=== PATIENT | male | born 1930 | race Caucasian/White ===

== ENCOUNTER 2018-04-02 10:32 | Outpatient (CLI) | payer MEDICARE ==
--- NOTE | 2018-04-02 12:14 | RAD ---
TWO VIEWS LUMBOSACRAL SPINE: History: Low back pain for several weeks. FINDINGS: Two views of the lumbosacral spine shows normal height and alignment of the vertebral bodies without fracture or subluxation. The intervertebral discs are narrowed, particularly at L2-3. Small osteophyt es are seen in the lumbar spine. Vascular calcifications are seen in the aorta. Posterior facet arthrosis is seen in the lower lumbosa cral spine. IMPRESSION: Degenerative changes of the lumbar spine without acute osseous abnormality. POS: [facility]
== END 2018-04-02 10:33 | disposition home or self-care (01) ==
LOC: SCSRAD 10:32
PROVIDERS: ATTEND Family Medicine
DX: M47.26 Other spondylosis with radiculopathy, lumbar region (principal); M89.9 Disorder of bone, unspecified
CPT/HCPCS: 72100

== ENCOUNTER 2018-05-05 13:13 | Outpatient (CLI) | payer MEDICARE ==
--- NOTE | 2018-05-05 15:27 | MRI ---
MRI LUMBAR SPINE NONCONTRAST: History: Fall, low back pain, bilateral radiculopathy. FINDINGS: Conus medullaris is slightly effaced posteriorly by facet hypertrophy at the T11-12 level. A lobulated heterogeneous destructive mass occupying the right and posterior aspect of the L3 vertebr al body measures up to 4.0 cm depth x 3.8 cm width x 3.0 cm length and extends into the right posteri or elements. The mass occupies the right 40% of the central canal at this level, compressing the caud a equina leftward. Edema within the inferior aspect of the l2 vertebral body is favored to be reactiv e rather than an additional mass. T12-L1: Mild osteophytosis. Central canal and neural foramina are patent. L1-2: Disc bulge and degenerative changes result in moderate bilateral foraminal stenoses. L2-3: Degenerative changes with moderate stenosis of the left neural foramen. Marked compression of the thecal sac and cauda equina results from the previously detailed mass. L3-4: Posterior disc bulge and circumferential degenerative changes. Severe stenosis of the central c anal. Moderate right and severe left foraminal stenoses. L4-5: Mild left posterolateral disc protrusion. Degenerative changes with disc bulge. Severe stenosis of the central canal. Moderate right and severe left foraminal stenoses. L5-S1: Thecal sac is patent. Degenerative changes with moderate bilateral foraminal stenoses. IMPRESSION: 1. Large expansile mass of the L3 vertebral body compressing the cauda equina. Likely metastatic dise ase. For the next step, a radionuclide bone scan could be used to evaluate for extent of osseous meta stases. This lesion would be amendable to percutaneous CT guided biopsy if needed. 2. CT of the torso could also be used to evaluate for the neoplasm primary. POS: [facility]
== END 2018-05-05 13:14 | disposition home or self-care (01) ==
LOC: TBSIIMAG 13:13
PROVIDERS: ATTEND Neurological Surgery
DX: M47.16 Other spondylosis with myelopathy, lumbar region (principal)
CPT/HCPCS: 72148

== ENCOUNTER 2018-05-21 09:35 | Outpatient (CLI) | payer MEDICARE ==
[2018-05-21] MEDS ORDERED: Iopamidol 370 76% 100 ML VIAL ONE (10:10)
[2018-05-21] MEDS ORDERED: Iopamidol 370 76% 50 ML VIAL FS ONE (10:10)
--- NOTE | 2018-05-21 10:56 | ULT ---
LIMITED ULTRASOUND OF THE ABDOMINAL AORTA: History: Abdominal aortic aneurysm screening. Technique: Multiplanar grayscale and color doppler images were obtained in a limited ultrasound of th e abdominal aorta. This exam is very limited secondary to patient's large body habitus. FINDINGS: Only limited portions of the aorta were seen. The mid and distal aorta were visualized. It is difficu lt to see the proximal aorta. The aorta measures 1.9 cm in greatest dimension along the midportion. IMPRESSION: No evidence of an abdominal aortic aneurysm on this limited exam. POS: [facility]
--- NOTE | 2018-05-21 14:52 | CT ---
CT OF THE CHEST AND ABDOMEN AND PELVIS WITH IV CONTRAST: Date: 05/21/18 INDICATION: History of metastatic disease with unknown primary. COMPARISON: MRI lumbar spine dated 05/05/[address] of the chest, abdomen, and pelvis dated 02/15/03. FINDINGS: There is scattered emphysema. There are a few areas of reticulonodularity within the anterolateral ri ght lower lobe. There is subsegmental volume loss within the left lung. There is subsegmental volume loss in portions of the right upper lobe. There are calcified granuloma within the right lower lobe. There are calcified lymph nodes within the right hilum. There are vascular calcifications involving t he coronary arteries and thoracic aorta. There is a nonspecific enlarged lymph node seen along the le ft internal mammary chain and anterior pericardial region, the largest measuring 1.6 cm on image 24 o f series 2 within the left internal mammary region. There is a cirrhotic morphology to the liver. There is a large, heterogeneously enhancing, hypodense mass centered within the right hepatic lobe extending into the medial left hepatic lobe measuring 9.8 x 9.5 cm in size, suspicious for hepatic malignancy. There is an enlarged lymph node within the gastrohepatic ligament measuring 4.8 x 3.8 cm. Gallbladder is mildly distended with layered gallstones. Pancreas, adrenal glands, and left kidney appear within normal limits. The spleen is enlarged, measur ing 16.5 cm. There is a 1.6 cm cyst within the superior pole of the right kidney. There are moderate calcifications involving the abdominopelvic vasculature. There are fat-containing periumbilical hernia. Scattered diverticula involving the colon without evidence of active diverticulitis. There is a large, lytic lesion corresponding the MRI abnormality involving the right aspect of the L3 vertebral body extending into the right L3 pedicle. No additional suspicious osteolytic lesion is id entified. There is diffuse osteopenia. There is scattered degenerative and osteoarthritic change. IMPRESSION: 1. Findings of cirrhosis and portal hypertension with an ill-defined heterogeneously enhancing lesio n within the right hepatic lobe extending into the medial left hepatic lobe suspicious for hepatic ma lignancy such as hepatocellular carcinoma. 2. Enlarged lymph node of the gastrohepatic ligament is suspicious for malignant lymphadenopathy. Mi ldly prominent lymph node seen within the anterior pericardial region and along the left internal dori quincy artery chain suspicious for malignant lymph node involvement. 3. Osseous metastatic disease to the right L3 vertebral body. 4. Emphysema. 5. Findings of prior granulomatous disease. 6. Nonspecific reticulonodularity within the right lower lobe can be seen with a bronchiolitis. 7. Colonic diverticulosis. 8. Prominent vascular calcifications. POS: [facility]
== END 2018-05-21 09:36 | disposition home or self-care (01) ==
LOC: BICULT 09:35 → CT 09:36
PROVIDERS: ATTEND Family Medicine
DX: Z00.00 Encounter for general adult medical examination without abnormal findings (principal); Z13.6 Encounter for screening for cardiovascular disorders; M89.9 Disorder of bone, unspecified; C79.51 Secondary malignant neoplasm of bone; J43.9 Emphysema, unspecified; K57.30 Diverticulosis of large intestine without perforation or abscess without bleeding; R59.0 Localized enlarged lymph nodes
CPT/HCPCS: 71260; 74177; 76775; 82565; Q9967

== ENCOUNTER 2018-05-30 20:02 | Emergency (ER) | payer MEDICARE ==
--- NOTE | 2018-05-30 20:41 | RAD ---
RADIOGRAPH RIGHT HIP TWO VIEWS: 05/30/18 HISTORY: 87-year-old male with traumatic right hip pain due to fall. FINDINGS: Body habitus, including abdominal pannus, obscures fine bony detail. No displaced fracture. No disloc ation. IMPRESSION: No fracture identified. POS: [facility]
[2018-05-30 21:03] LABS: Bacteria/HPF 4+ HPF (None Seen); Bilirubin Negative (Negative); Blood, Urine Large (Negative); Clarity TURBID (Clear); Glucose, Urine (Dipstick) Negative (Negative); Leukocyte Large (Negative); Nitrite Negative (Negative); Protein, Urine (Dipstick) 100 mg/dL (Neg-Trace); Specific Gravity, Urine 1.014 (1.002-1.036); Squamous Epithelial 0-3 HPF (0-3)
[2018-05-30 21:04] LABS: Pathc Cast-AUWi Flag 4.71 (0-2.49); Yeast-AUWi Flag 89.4 (0-25.0)
--- NOTE | 2018-05-30 21:07 | CT ---
CT OF THE BRAIN WITHOUT CONTRAST 05/30/18 INDICATION: History of mechanical fall with head pain. COMPARISON: None. FINDINGS: No acute infarct, hemorrhage or hydrocephalus is present. Septum pellucidum and third ventricle are m idline. There is a large parietal scalp laceration near the midline vertex. Skull is intact. There i s no evidence of displaced fracture. Mastoid air cells and paranasal sinuses are clear. IMPRESSION: No acute intracranial abnormality. POS: [facility]
--- NOTE | 2018-05-30 21:09 | CT ---
CT CERVICAL SPINE WITHOUT CONTRAST: 05/30/18 INDICATION: History of fall with neck pain. COMPARISON: None. FINDINGS: No acute fracture or subluxation is evident. There is moderate multilevel cervical spondylosis. Crani ocervical junction appears within normal limits. Prevertebral soft tissues and lung apices are within normal limits. IMPRESSION: No acute fracture or subluxation. POS: [facility]
[2018-05-30 21:11] LABS: RBC/HPF GREATER THAN 50-TNTC HPF (0-3)
[2018-05-30 21:13] LABS: Hyaline Casts/LPF 4-6 HYALINE CAST LPF (0-3 Hyaline)
[2018-05-30] MEDS ORDERED: Cephalexin 250 MG CAP ONE (22:04)
== END 2018-05-30 22:46 | disposition home or self-care (01) ==
LOC: ERS 20:02
DX: S01.01XA Laceration without foreign body of scalp, initial encounter (principal); N39.0 Urinary tract infection, site not specified; E11.9 Type 2 diabetes mellitus without complications; K21.9 Gastro-esophageal reflux disease without esophagitis; I10 Essential (primary) hypertension; Z79.899 Other long term (current) drug therapy; Z79.4 Long term (current) use of insulin; W17.89XA Other fall from one level to another, initial encounter
CPT/HCPCS: 12004; 70450; 72125; 81001

== ENCOUNTER 2018-06-08 09:09 | Day surgery (SDC) | payer MEDICARE ==
[2018-06-08 09:59] LABS: INR-International Normal Ratio 1.3; PTT 35.8 SEC (22.9-36.1); Prothrombin Time 16.1 SEC (12.0-14.7)
[2018-06-08] MEDS ORDERED: Fentanyl 100 MCG/2 ML VIAL ONE (10:35)
[2018-06-08] MEDS ORDERED: Midazolam HCl 2 mg/2 ml Vial ONE (10:35)
[2018-06-08] MEDS ORDERED: Sodium Bicarbonate 2.5 MEQ/5 ML VIAL ONE (10:35)
[2018-06-08 10:46] LABS: #Eosinphils 0.2 thou/uL (0.0-0.7); #Lymphocytes 1.5 thou/uL (1.20-3.40); #Monocytes 0.5 thou/uL (0.11-0.59); #Neutrophils 5.8 thou/uL (1.40-6.50); %Basophils 0.4 % (0.0-1.0); %Eosinophils 2.7 % (0.0-10.0); %Lymphocytes 18.5 % (21.0-51.0); %Monocytes 6.1 % (0.0-10.0); %Neutrophils 72.3 % (42.0-75.0); Hemoglobin 13.2 g/dL (14.0-18.0); MDiff Complete? YES; Macrocytosis SLIGHT = 6-15 cells (100X) (0-5/hpf); Mean Corpuscular HGB CONC 33.7 g/dL (32.0-36.0); Mean Corpuscular Hemoglobin 33.9 pg (27.0-31.0); Mean Platelet Volume 7.4 fL (7.4-10.4); Platelet Count 102 thou/uL (130-400); Platelet Morphology Comment Appears Decreased; RBC Distribution Width 12.1 % (11.5-14.5)
--- NOTE | 2018-06-08 13:46 | CT ---
CT GUIDED LEFT HEPATIC LOBE MASS BIOPSY: TECHNIQUE: Informed consent was obtained from the patient. The left hepatic lobe mass was localized using CT gu idance. The overlying skin was prepped and draped in the usual sterile manner. A 1% Lidocaine solut ion was used to anesthetize the overlying soft tissues. An outer 17 gauge coaxial needle was placed into the left hepatic lobe. A total of four 2.2 cm core biopsies were obtained using an 18 gauge cor e biopsy needle. The specimen was given to pathology. Initial pathologic evaluation by pathology monson ggests the presence of malignant cells. Post biopsy, a Gelfoam pledget was introduced into the biopsy tract. Hemostasis was achieved. No ev idence of post biopsy hematoma was seen. IMPRESSION: Successful CT guided left hepatic mass biopsy. POS: [facility]
[2018-06-08 13:57] VITALS: BP 138/70; TEMP 98.2
== END 2018-06-08 12:30 | disposition home or self-care (01) ==
LOC: CT 09:09
PROVIDERS: ATTEND Internal Medicine Hematology & Oncology
PROC: 0FB23ZX Excision of Left Lobe Liver, Percutaneous Approach, Diagnostic (ICD-10-PCS; principal; 2018-06-08)
DX: C22.9 Malignant neoplasm of liver, not specified as primary or secondary (principal); D49.2 Neoplasm of unspecified behavior of bone, soft tissue, and skin; M19.90 Unspecified osteoarthritis, unspecified site; E78.00 Pure hypercholesterolemia, unspecified; I48.0 Paroxysmal atrial fibrillation; K21.9 Gastro-esophageal reflux disease without esophagitis; E11.9 Type 2 diabetes mellitus without complications; I10 Essential (primary) hypertension; Z87.891 Personal history of nicotine dependence; Z79.84 Long term (current) use of oral hypoglycemic drugs; Z79.4 Long term (current) use of insulin; Z79.82 Long term (current) use of aspirin; Z79.899 Other long term (current) drug therapy
CPT/HCPCS: 36415; 47000; 77012; 85025; 85610; 85730; 88307; 88313; 88333; 88341; 88342; J2250; J3010

== ENCOUNTER 2018-07-05 15:50 | Emergency (ER) | payer MEDICARE ==
[2018-07-05 16:38] LABS: #Eosinphils 0.2 thou/uL (0.0-0.7); #Lymphocytes 1.2 thou/uL (1.20-3.40); #Monocytes 0.5 thou/uL (0.11-0.59); #Neutrophils 3.3 thou/uL (1.40-6.50); %Basophils 0.7 % (0.0-1.0); %Monocytes 9.5 % (0.0-10.0); %Neutrophils 62.8 % (42.0-75.0); Hemoglobin 13.7 g/dL (14.0-18.0); Mean Corpuscular HGB CONC 34.6 g/dL (32.0-36.0); Mean Corpuscular Hemoglobin 34.9 pg (27.0-31.0); Mean Platelet Volume 7.3 fL (7.4-10.4); Platelet Count 95 thou/uL (130-400); RBC Distribution Width 13.1 % (11.5-14.5); Red Blood Cell (RBC) Count 3.93 mill/uL (4.70-6.10); White Blood Cell (WBC) Count 5.2 thou/uL (4.8-10.8)
[2018-07-05 16:56] LABS: Bilirubin Small (Negative); Blood, Urine Large (Negative); Clarity TURBID (Clear); Glucose, Urine (Dipstick) Negative (Negative); Leukocyte Large (Negative); Nitrite Positive (Negative); Protein, Urine (Dipstick) 100 mg/dL (Neg-Trace); pH, Urine 5.5 (5.0-9.0)
[2018-07-05 16:57] LABS: ALT (SGPT) 36 U/L (8-55); AST (SGOT) 36 U/L (5-34); Albumin 3.4 g/dL (3.4-4.8); Alkaline Phosphatase 168 U/L (40-150); Anion Gap 13 mmol/L (10-20); BUN (Urea Nitrogen) 28 mg/dL (8.4-25.7); Bilirubin, Total 1.6 mg/dL (0.2-1.2); Calc. Creatinine Clearance 0 mL/min (70-130); Calcium 9.4 mg/dL (7.8-10.44); Carbon Dioxide 22 mmol/L (23-31); Chloride 103 mmol/L (98-107); Estimated GFR-MDRD 43; Globulin 2.8 g/dL (2.4-3.5); Glucose 254 mg/dL (83-110); Potassium 4.4 mmol/L (3.5-5.1); Protein, Total 6.2 g/dL (5.8-8.1); Sodium 134 mmol/L (136-145)
[2018-07-05 16:58] LABS: Bacteria/HPF 4+ HPF (None Seen); Hyaline Casts/LPF NONE SEEN LPF (0-3 Hyaline); Renal Epithelial 0-3 HPF (0-3); Squamous Epithelial 0-3 HPF (0-3)
[2018-07-05] MEDS ORDERED: cefTRIAXone\\ROCEPHIN 2 GM VIAL ONE (17:32)
[2018-07-05 19:45] LABS: Anion Gap 12 mmol/L (10-20); BUN (Urea Nitrogen) 26 mg/dL (8.4-25.7); Calc. Creatinine Clearance 0 mL/min (70-130); Calcium 8.7 mg/dL (7.8-10.44); Carbon Dioxide 20 mmol/L (23-31); Chloride 107 mmol/L (98-107); Estimated GFR-MDRD 55; Glucose 186 mg/dL (83-110); Potassium 4.3 mmol/L (3.5-5.1); Sodium 135 mmol/L (136-145)
== END 2018-07-05 21:17 ==
LOC: ERS 15:50
DX: N39.0 Urinary tract infection, site not specified (principal); E86.0 Dehydration; E11.9 Type 2 diabetes mellitus without complications; Z79.4 Long term (current) use of insulin; I10 Essential (primary) hypertension; K21.9 Gastro-esophageal reflux disease without esophagitis; Z79.899 Other long term (current) drug therapy
CPT/HCPCS: 36415; 80053; 81003; 81015; 83605; 85025; 87040; 87077; 87086; 87186; 96361; 96365; J0696

== ENCOUNTER 2018-12-09 15:11 | Inpatient (IN) | payer MEDICARE ==
[2018-12-09 16:04] LABS: #Eosinphils 0.2 thou/uL (0.0-0.7); #Lymphocytes 1.2 thou/uL (1.20-3.40); #Monocytes 0.2 thou/uL (0.11-0.59); #Neutrophils 2.9 thou/uL (1.40-6.50); %Basophils 0.5 % (0.0-1.0); %Eosinophils 3.9 % (0.0-10.0); %Lymphocytes 26.9 % (21.0-51.0); %Monocytes 4.4 % (0.0-10.0); %Neutrophils 64.2 % (42.0-75.0); Hemoglobin 11.5 g/dL (14.0-18.0); Mean Corpuscular HGB CONC 33.6 g/dL (32.0-36.0); Mean Corpuscular Hemoglobin 36.3 pg (27.0-31.0); Mean Platelet Volume 9.1 fL (7.4-10.4); Platelet Count 60 thou/uL (130-400); RBC Distribution Width 13.9 % (11.5-14.5); Red Blood Cell (RBC) Count 3.16 mill/uL (4.70-6.10); White Blood Cell (WBC) Count 4.5 thou/uL (4.8-10.8)
[2018-12-09 16:23] LABS: Bacteria/HPF 4+ HPF (None Seen); Bilirubin Negative (Negative); Blood, Urine 2+ (Negative); Clarity Extra Turbid (Clear); Glucose, Urine (Dipstick) Normal (Negative); Leukocyte 500 Leu/uL (Negative); Nitrite 1+ (Negative); Protein, Urine (Dipstick) 100 mg/dL (Neg-Trace); Squamous Epithelial None Seen HPF (0-3); Urobilinogen Normal mg/dL (Less than 2); WBC/HPF Greater than 50 HPF (0-3)
[2018-12-09 16:25] LABS: ALT (SGPT) 39 U/L (8-55); AST (SGOT) 57 U/L (5-34); Albumin 2.7 g/dL (3.4-4.8); Alkaline Phosphatase 149 U/L (40-150); Anion Gap 16 mmol/L (10-20); BUN (Urea Nitrogen) 46 mg/dL (8.4-25.7); Bilirubin, Total 1.6 mg/dL (0.2-1.2); CK (CPK) 52 U/L (30-200); Calc. Creatinine Clearance 0 mL/min (70-130); Calcium 8.7 mg/dL (7.8-10.44); Carbon Dioxide 20 mmol/L (23-31); Chloride 106 mmol/L (98-107); Estimated GFR-MDRD 21; Globulin 3.2 g/dL (2.4-3.5); Glucose 155 mg/dL (83-110); Magnesium 2.2 mg/dL (1.6-2.6); Potassium 4.1 mmol/L (3.5-5.1); Protein, Total 5.9 g/dL (5.8-8.1); Sodium 138 mmol/L (136-145)
--- NOTE | 2018-12-09 16:41 | RAD ---
FRONTAL VIEW CHEST: 12/09/18 COMPARISON: January 18, 2008. FINDINGS: There is abnormal pleural and parenchymal density of the mid inferior left chest. Interstitial promin ence of each lung is present. There is enlargement of the cardiac silhouette and pulmonary vasculatur e. IMPRESSION: 1. Left pleural effusion with adjacent atelectasis and/or pneumonia. 2. CHF. POS: [facility]
[2018-12-09] MEDS ORDERED: cefTRIAXone\\ROCEPHIN 2 GM VIAL ONE ×2 (16:42→16:45)
[2018-12-09 16:49] LABS: Lipase 19 U/L (8-78)
[2018-12-09 16:57] LABS: CKMB 1.3 ng/mL (0-6.6)
[2018-12-09] MEDS ORDERED: Vancomycin HCl 1.5 GM in Sodium Chloride 0.9% 250 ML 300 ML IVPB ONE (17:00)
[2018-12-09 17:04] LABS: INR-International Normal Ratio 1.5; PTT 37.1 SEC (22.9-36.1); Prothrombin Time 17.9 SEC (12.0-14.7)
[2018-12-09 17:58] LABS: Lactic Acid 1.5 mmol/L (0.5-2.2)
--- NOTE | 2018-12-09 17:58 | CT ---
CT Stone Protocol: 12/09/2018 4:58 PM HISTORY: Increasing weakness with acute kidney injury and BPH COMPARISON: 05/21/2018 TECHNIQUE: Multiple contiguous axial images were obtained and a CT of the abdomen and pelvis without IV contrast . Coronal and sagittal reformats were performed. FINDINGS: This examination is limited for the evaluation of solid organs and vascular structures due to the lac k of intravenous contrast. Lower Chest: within normal limits. Abdomen: Liver: Cirrhotic in appearance. . The previously seen abnormality in the left lower liver is not appr eciated without contrast. Bile Ducts: Normal caliber. Gallbladder: Calcified dependent gallstones Pancreas: within normal limits. Spleen: Scattered calcified granulomas. Adrenals: within normal limits. Kidneys: within normal limits. Pelvis: Reproductive Organs: No pelvic masses. Ureters: within normal limits. Bladder: within normal limits. Bowel: Normal caliber. Mesenteric Lymph Nodes: No enlarged mesenteric lymph nodes. Peritoneum: No free air is seen. Moderate ascites is seen. There is a 5.8 cm mass along the root of t he mesentery which has increased in size compared to the prior exam. Vessels: Atherosclerotic calcifications in the aorta Retroperitoneum: within normal limits. Abdominal Wall: within normal limits. Bones: Degenerative changes in the spine and sacroiliac joints. There is a lytic lesion measuring 4.3 cm in size in the L3 vertebral body causing moderate to severe central canal stenosis. There is a destructive lytic lesion involving the left iliac bone near the acetabulum measuring 5.6 cm in size. This has enlarged compared to the prior examination. IMPRESSION: 1. Cirrhosis with portal hypertension/ascites 2. Lytic lesions seen in the L3 vertebral body and left iliac bone. These could represent lytic metas tases or primary osseous lesions. 3. Cholelithiasis 4. Enlarging mesenteric mass
--- NOTE | 2018-12-09 18:01 | ULT ---
EXAM: Bilateral lower extremity venous ultrasound HISTORY: Bilateral lower extremity pain and edema COMPARISON: None TECHNIQUE: Multiplanar grayscale and color Doppler images were obtained in a bilateral lower extremit y venous ultrasound. Spectral analysis of the Doppler waveforms were performed. FINDINGS: The bilateral common femoral vein, profunda femoral veins, and superficial femoral veins a re normal in appearance without visible thrombus. These vessels demonstrate normal compression, flow, and augmentation. The popliteal veins were unable to be visualized secondary to positioning. The bilateral greater saphenous veins are patent without evidence of thrombus. The bilateral posterio r tibial veins could not be visualized. IMPRESSION: No evidence of DVT.
[2018-12-09] MEDS ORDERED: Ondansetron ODT 4 MG TAB SL PRN (18:58)
[2018-12-09] MEDS ORDERED: Ondansetron PF 4 MG/2 ML Vial IVP PRN (18:58)
[2018-12-09] MEDS ORDERED: Sodium Chloride 0.9% 1,000 ML IV SCH (18:58)
[2018-12-09] MEDS ORDERED: Dextrose 50% Abboject 50 ML SYRINGE SLOW IVP PRN (19:43)
[2018-12-09] MEDS ORDERED: Dextrose 5% in Water 1,000 ML IV PRN (19:43)
[2018-12-09] MEDS ORDERED: RENALLY ADJUST ANTIBIOTICS IVPB PRN (19:43)
[2018-12-09] MEDS ORDERED: Calcium Carbonate 500 MG ChewTAB PO PRN (19:49)
[2018-12-09] MEDS ORDERED: Insulin Regular 300 UNITS/3 ML VIAL SC PRN (19:49)
[2018-12-09] MEDS ORDERED: Ondansetron ODT 4 MG TAB PO PRN (19:49)
[2018-12-09 19:58] LABS: Troponin I 0.023 ng/mL (< 0.028)
--- NOTE | 2018-12-09 20:27 | HP ---
PRIMARY CARE PHYSICIAN: Vinnie Edmond DO PRIMARY ONCOLOGIST: Dillon Santos MD CHIEF COMPLAINT: Generalized weakness. HISTORY OF PRESENT ILLNESS: The patient is an 88-year-old male with hepatocellular carcinoma with metastasis, presented to the hospital with generalized weakness. Over the last 6 months, the patient's overall condition has gradually declined. He was recently at [facility] as well as [facility]. Over the last 2 months, he is living at home. He has fallen approximately 10 times recently. The last fall was yesterday without significant injuries. He has also lost his appetite. No fever, dysuria, hematuria, or urgency reported. The patient has been nauseous. The family also noticed worsening lower extremity swelling along with increasing abdominal distention. Last week, he was evaluated by Dr. Edmond and was found to have elevated creatinine of 2.48. He was scheduled to see Nephrology tomorrow. No chest pain reported. He complains of shortness of breath on lying down flat. PAST MEDICAL HISTORY: 1. Diabetes mellitus type 2. 2. Hypertension. 3. Hyperlipidemia. 4. GERD. 5. 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 PAST SURGICAL HISTORY: 1. Left knee surgery. 2. Hernia repair. 3. Liver biopsy. ALLERGIES: NO KNOWN DRUG ALLERGIES. CURRENT HOME MEDICATIONS: Family to bring accurate list of medications. SOCIAL HISTORY: The patient currently lives at home with his . No current use of alcohol, tobacco, or drug use. FAMILY HISTORY: Negative for premature coronary artery disease. REVIEW OF SYSTEMS: Cannot be reliably obtained from the patient due to significant weakness. PHYSICAL EXAMINATION: VITAL SIGNS: Temperature 97.8, respirations 18, pulse 72, and blood pressure of 98/54 with O2 saturation 96% on room air. GENERAL: An 88-year-old male, ill-appearing, in mild respiratory distress. HEENT: Head, atraumatic and normocephalic. Sclerae are anicteric. Dry mucous membranes. No oral lesion. NECK: Supple. No JVD appreciated. No carotid bruit. LUNGS: Showed diminished air entry at bilateral bases with scattered rhonchi. No wheezing. Lungs were symmetrical. HEART: S1 and S2 present. Regular rate and rhythm. No rubs or gallops. ABDOMEN: Soft and distended. There was shifting dullness. No rebound or guarding. No costovertebral angle tenderness. EXTREMITIES: 2 to 3+ edema in bilateral lower extremity, pitting. Mild calf tenderness. SKIN: Warm and dry. LYMPH NODES: No palpable lymph nodes in the neck. PERIPHERAL VASCULAR: Radial pulses palpable bilaterally. MUSCULOSKELETAL: No joint swelling or tenderness. LABORATORY FINDINGS: WBC 4.5 with hemoglobin 11.5, hematocrit 34.1, platelet of 60, and MCV of 108. INR 1.5, PT of 17.9, and PTT 37.1. Chemistry showed sodium 138, potassium 4.1, chloride 106, bicarb 20, BUN 46, and creatinine 2.84. His creatinine in July was 1.09 with a GFR of 64. Total bilirubin 1.6 with AST 57, ALT 39, and alkaline phosphatase 149. Troponin was 0.029 with normal CK-MB. Albumin 2.7. Urinalysis showed greater than 50 wbc's with 4+ bacteria. CT stone protocol showed cirrhosis with portal hypertension and ascites. It also showed lytic lesion 4.3 cm at L3 vertebral body causing ysytqokn-on-jpajug central canal stenosis. He also had a destructive lytic lesion involving the left iliac bone near the acetabulum measuring 5.6 cm in size. There was moderate ascites with enlarging mesenteric mass. There was cholelithiasis as well. Chest x-ray by my review showed left pleural effusion with adjacent atelectasis and/or pneumonia with pulmonary vascular congestion. Bilateral lower extremity Doppler was negative. EKG by my review showed sinus bradycardia with PVCs. IMPRESSION: 1. Generalized weakness, multifactorial. 2. Urinary tract infection. 3. Acute kidney injury on chronic kidney disease stage 2, probably secondary to intravascular volume depletion. 4. Cirrhosis with portal hypertension and moderate amount of ascites. 5. Hepatocellular carcinoma with metastasis. 6. Ukocszvg-wg-xzshkz central canal stenosis in the L3 vertebral body along with lytic lesion in the left iliac bone. 7. Congestive heart failure exacerbation. 8. Metabolic acidosis. 9. Abnormal LFTs. 10. Moderate protein-calorie malnutrition. 11. Macrocytic anemia. 12. Pancytopenia (platelet was 60, WBC was 4.5). 13. Diverticulosis. 14. Hypertension. 15. Diabetes mellitus type 2. 16. Gastroesophageal reflux disease. 17. Hyperlipidemia. PLAN: 1. The patient will be monitored in the telemetry unit. We will consult Oncology, Nephrology, and Gastroenterology. We will also consult palliative care team. Gentle hydration for LUIS A. We will consult Neurosurgery due to lytic lesion along with daetuwqi-ca-jtxjhv central canal stenosis. We will confirm home medications. We will check postvoid residual. Recheck labs in a.m. 2. Consult Physical Therapy, Occupation Therapy once cleared by Neurosurgery. 3. Resume home medications once verified. 4. Plan of care was discussed with the patient and the family in detail, they stated understanding. CODE STATUS: Full code verified with the patient and the family. Surrogate decision maker is the spouse at the bedside. Job ID: [id number]
[2018-12-09] MEDS ORDERED: Piperacillin/Tazobactam 2.25 GM in Sodium Chloride 0.9% 100 ML IVPB SCH (21:00)
[2018-12-09] MEDS: Senokot S 8.6-50 MG TAB PO SCH (21:57)
[2018-12-09 22:22] LABS: Troponin I Less than 0.010 ng/mL (< 0.028)
[2018-12-10] MEDS: Piperacillin/Tazobactam 2.25 GM in Sodium Chloride 0.9% 100 ML IVPB SCH ×2 (04:43→09:57)
[2018-12-10 05:53] LABS: ALT (SGPT) 34 U/L (8-55); AST (SGOT) 42 U/L (5-34); Albumin 2.3 g/dL (3.4-4.8); Alkaline Phosphatase 127 U/L (40-150); Anion Gap 14 mmol/L (10-20); BUN (Urea Nitrogen) 47 mg/dL (8.4-25.7); Bilirubin, Total 1.2 mg/dL (0.2-1.2); Calc. Creatinine Clearance 30 mL/min (70-130); Calcium 8.4 mg/dL (7.8-10.44); Carbon Dioxide 22 mmol/L (23-31); Chloride 107 mmol/L (98-107); Estimated GFR-MDRD 22; Globulin 2.9 g/dL (2.4-3.5); Glucose 126 mg/dL (83-110); Potassium 3.4 mmol/L (3.5-5.1); Protein, Total 5.2 g/dL (5.8-8.1); Sodium 140 mmol/L (136-145)
[2018-12-10 06:17] LABS: Band 5 % (5-11); Eosinophils 6 % (0-10); Hemoglobin 10.8 g/dL (14.0-18.0); Lymphocytes 23 % (21-51); MDiff Complete? YES; Mean Corpuscular HGB CONC 34.2 g/dL (32.0-36.0); Mean Platelet Volume 8.3 fL (7.4-10.4); Monocytes 4 % (0-10); Neutrophil 62 % (42-75); Platelet Count 54 thou/uL (130-400); Platelet Morphology Comment Appears Decreased; RBC Distribution Width 13.8 % (11.5-14.5); Red Blood Cell (RBC) Count 2.92 mill/uL (4.70-6.10)
[2018-12-10 08:03] LABS: Vitamin B12 Greater than 2000 pg/mL (211-911)
[2018-12-10] MEDS ORDERED: Sodium Chloride 0.9% 1,000 ML IV SCH (08:15)
[2018-12-10] MEDS: Saccharomyces boulardii 250 MG CAP PO SCH (09:58)
[2018-12-10] MEDS: Senokot S 8.6-50 MG TAB PO SCH ×2 (09:59→21:19)
--- NOTE | 2018-12-10 12:21 | CON ---
DATE OF CONSULTATION: REASON FOR CONSULT: Carcinoma. HISTORY OF PRESENT ILLNESS: Mr. 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 He underwent LS spine radiotherapy, which was completed in early June. He was to see Dr. Santos to discuss chemotherapy options in mid June, but did not come to that appointment. His states that over the last several months, he has become significantly weaker. He has had a couple of visits in the rehab. Over the last several weeks, he has had an increase in fall, approximately 10 times. He has had poor appetite and increasing abdominal girth. He was seen by his PCP, Dr. Edmond, last week. He had an elevated creatinine of 2.48. He was brought to the emergency room yesterday for weakness and further workup. The patient was seen at bedside with his . He is hard of hearing, but able to answer questions. He denies any pain. The patient had an abdominal and pelvis CT done in the emergency room. His liver was noted to be cirrhotic in appearance. He did have portal hypertension and ascites. The L3 vertebral body had lesions noted. There was also lytic lesion in the left iliac bone. He has a mesenteric mass measuring 5.8 cm. PAST MEDICAL HISTORY: 1. Metastatic, poorly differentiated carcinoma involving the bone and liver, primary unknown. 2. Palliative L-spine radiotherapy. 3. Type 2 diabetes. 4. Hypertension. 5. Paroxysmal atrial fibrillation. 6. Hyperlipidemia. 7. Arthritis. 8. GERD. PAST SURGICAL HISTORY: 1. Hernia repair. 2. Knee replacement. ALLERGIES: NO KNOWN DRUG ALLERGIES. HOME MEDICATIONS: 1. Amlodipine. 2. Valsartan/hydrochlorothiazide. 3. Aspirin. 4. Coreg. 5. Lasix. 6. Cypress. 7. Insulin. 8. Glucophage. 9. Prilosec. 10. Crestor. 11. Spironolactone. FAMILY HISTORY: No known history of cancer. SOCIAL HISTORY: , has five children. Lives with his . No alcohol, tobacco, or illicit drug use. REVIEW OF SYSTEMS: Negative except for noted in HPI. PHYSICAL EXAMINATION: VITAL SIGNS: Temperature 98.1, pulse is 77, respiratory rate 18, BP is 91/52. He is 95% on room air. GENERAL: This is a well-developed, well-nourished male, in no acute distress. He is hard of hearing. HEENT: Normocephalic, atraumatic. Pupils are equal and reactive to light. NECK: Supple. CV: Regular rate and rhythm. LUNGS: Clear anterior. ABDOMEN: Obese, nontender. Bowel sounds are positive. EXTREMITIES: No clubbing or cyanosis. He does have chronic skin changes in his lower extremities with 2+ edema. SKIN: No rash. HEMATOLOGIC: No petechiae or purpura. NEUROLOGIC: Nonfocal. PERTINENT LABS AND X-RAYS: Current WBCs are 4.0, hemoglobin 10.8, hematocrit 31.5, platelet count is 54,000. He has 62% neutrophils, 5% bands, 23% lymphocytes. PT 17.9, INR is 1.5, and PTT is 37.1. Sodium is 140, potassium 3.4, chloride 107, CO2 is 22, BUN is 47, creatinine 2.71, calcium 8.4, bilirubin 1.2, AST is 42, ALT is 34, alkaline phosphatase is 127. Troponin is negative. Serum total protein is 5.2, albumin 2.3, globulin 2.9. B12 is greater than 2,000. TSH is 8.4828. Urine showed 4+ bacteria, positive leukocyte esterase and nitrites. Radiology per HPI. Venogram was negative for DVT. ASSESSMENT: 1. Poorly differentiated metastatic carcinoma. 2. Urinary tract infection. 3. Acute kidney injury. 4. Cirrhosis with portal hypertension and ascites. 5. Moderate to severe central canal stenosis at the L2 vertebral body. 6. Pancytopenia. DISCUSSION: The patient has had untreated carcinoma over the last 6 months. His general decline is most likely due to his cancer. He does not have a cirrhotic appearing liver with ascites. GI has been consulted and we will recheck an AFP as at diagnosis it was 77.3. He is on antibiotics for UTI. Nephrology has seen the patient and is working on his acute kidney injury. I discussed with his that he as of now is a poor candidate for any type of treatment for his cancer and it appears that she is unable to care for him at home. He will likely need to go to a facility. We will have pillowcase cleaner and Palliative Care see the patient. Thank you for the consult. Job ID: [id number] [facility]ALTH[facility]
[2018-12-10] MEDS ORDERED: Vancomycin HCl 1 GM in Premix Bag 1 BAG IVPB SCH (14:30)
[2018-12-10] MEDS: cefTRIAXone\\ROCEPHIN 1 GM in Sodium Chloride 0.9% 100 ML IVPB SCH (15:17)
[2018-12-10] MEDS: Sodium Chloride 0.9% 1,000 ML IV SCH (15:18)
--- NOTE | 2018-12-10 16:21 | PDOC.HOSPP ---
- Subjective Encounter Date: 12/10/18 Encounter Time: 13:30 Subjective: Patient seen and examined for Gen weakness/LUIS A. Feels the same. No CP or SOB. No new complaints. No overnight events - Objective Vital Signs & Weight: Vital Signs (12 hours) Temp Pulse Resp BP Pulse Ox 12/10/18 11:51 98.2 F 74 16 98/54 L 95 12/10/18 08:02 98.1 F 77 18 91/52 L 95 12/10/18 07:01 96 Weight Admit Weight 240 lb 3.2 oz Weight 240 lb 3.2 oz I&O: 12/09/18 12/10/18 12/11/18 06:59 06:59 06:59 Intake Total 595 Balance 595 Result Diagrams: 12/10/18 04:38 12/10/18 04:38 Additional Labs: Accuchecks 12/10/18 12/10/18 12/09/18 10:46 05:38 20:33 POC Glucose 163 H 124 H 169 H Laboratory Tests 12/10/18 12:03 Tumor Marker AFP 420.6 H Radiology Reviewed by me: Yes (Abd CT - reviewed) EKG Reviewed by me: Yes (SR) Hospitalist ROS - Review of Systems Respiratory: denies: cough, dry, shortness of breath, hemoptysis, SOB with excertion, pleuritic pain, sputum, wheezing, other Cardiovascular: denies: chest pain, palpitations, orthopnea, paroxysmal noc. dyspnea, edema, light headedness, other Gastrointestinal: denies: nausea, vomiting, abdominal pain, diarrhea, constipation, melena, hematochezia, other - Medication Medications: Active Medications Generic Name Dose Route Start Last Admin Trade Name Freq PRN Reason Stop Dose Admin Ceftriaxone Sodium 1 gm/ 100 mls @ 200 mls/hr 12/10/18 15:00 12/10/18 15:17 Sodium Chloride IVPB 100 mls Q24HR JOSAFAT Administration Sodium Chloride 1,000 mls @ 30 mls/hr 12/10/18 14:46 12/10/18 15:18 Normal Saline 0.9% IV 1,000 mls .Q24H JOSAFAT Administration Pantoprazole Sodium 40 mg 12/10/18 09:00 12/10/18 09:59 Protonix PO 40 mg DAILY JOSAFAT Administration Saccharomyces Boulardii 250 mg 12/10/18 09:00 09/19/19 09:58 Florastor PO 250 mg DAILY JOSAFAT Administration Senna/Docusate Sodium 2 tab 12/09/18 21:00 12/10/18 09:59 Senokot S PO 2 tab BID JOSAFAT Administration Sodium Chloride 10 ml 12/09/18 21:00 12/10/18 09:59 Flush - Normal Saline IVF 10 ml Q12HR JOSAFAT Administration - Exam General Appearance: NAD Heart: RRR, no rubs Respiratory: CTAB, no ronchi Gastrointestinal: soft, normal bowel sounds Extremities: no edema Psychiatric: A&O x 3 Hosp A/P - Plan IMPRESSION: 1. Generalized weakness, multifactorial. 2. E coli Urinary tract infection. 3. Acute kidney injury on chronic kidney disease stage 2, probably secondary to intravascular volume depletion. 4. Cirrhosis with portal hypertension and moderate amount of ascites. 5. Abnormal LFTs./Hepatocellular carcinoma with metastasis. 6. Wwcyhygk-ad-jeffvt central canal stenosis in the L3 vertebral body along with lytic lesion in the left iliac bone. 7. Congestive heart failure exacerbation. 8. Metabolic acidosis. 9. Staph bacteremia 10. Moderate protein-calorie malnutrition. 11. Macrocytic anemia. 12. Pancytopenia (platelet was 60, WBC was 4.5). 13. Diverticulosis. 14. Hypertension. 15. Diabetes mellitus type 2. 16. Gastroesophageal reflux disease. 17. Hyperlipidemia. PLAN: Echo pending DNR - verified with patient/family Cont IV Ceftriaxone Add IV Vancomycin Monitor Vancomycin level Case d/w Neurosurgery Cont PT/OT Activity as tolerated Rehab Eval Change IVF to KVO
[2018-12-10] MEDS: Folic Acid 1 MG TAB PO SCH (21:19)
[2018-12-10] MEDS ORDERED: Vancomycin HCl 1.5 GM in Sodium Chloride 0.9% 250 ML 300 ML IVPB SCH (22:00)
--- NOTE | 2018-12-11 01:59 | CON ---
DATE OF CONSULTATION: 12/10/2018 REASON FOR CONSULTATION: Ascites, cirrhotic morphology on imaging, liver cancer with metastatic disease. 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 Per chart review and per discussion with the family and patient, the patient was initially diagnosed with a liver mass earlier this year approximately 6 months ago. During that time period, he had a liver biopsy that was performed that showed a poorly differentiated carcinoma with unknown primary. At the time of diagnosis, he did have an evidence of metastatic disease consistent of an L3 spinal lesion in addition to a larger lesion within the mesentery itself. On the imaging, it does not comment on anything within the region of the colon or within the intraluminal colon. With this presence of liver mass, he was supposed to follow with Oncology, but did not do so. Instead over the last 2 months, the patient's functional status has been slowly declining consisting of increased generalized weakness and multiple falls, one of which ending up in a head laceration. He was ultimately transferred to a rehab facility for physical therapy and initially did show some improvement, but after being discharged to home, showed a progressive decline as well. However, over the last 2 weeks, the patient has been having increased weight as well as increased abdominal distention. He also endorses increased lower extremity edema that has been worsening over the last 3 to 4 weeks as well. During this time period, he also endorses increased nausea, nonbloody emesis, increased substernal pyrosis consistent with GERD, and diarrhea with the administration of metformin only. However, he currently denies any fevers, chills, hematemesis, melena, hematochezia, dysphagia, odynophagia, or abdominal pain at the current time. With this worsening functional status, he was evaluated by his PCP, Dr. Edmond and found to have an elevated creatinine with recommendations to proceed to the hospital for further evaluation and treatment. REVIEW OF SYSTEMS: A 10-category review of systems was obtained with all responses negative except for the pertinent positives as listed in the HPI. PAST MEDICAL HISTORY: As per HPI. PAST SURGICAL HISTORY: Left knee surgery, hernia repair, and liver biopsy. FAMILY HISTORY: Denies any family history of GI malignancies. OUTPATIENT MEDICATIONS: Reviewed. ALLERGIES: NO KNOWN DRUG ALLERGIES. SOCIAL HISTORY: Denies any tobacco, alcohol, or illicit drug use. OBJECTIVE: VITAL SIGNS: Temperature 97.3, pulse 67, blood pressure 95/51, respiratory rate 18, and saturating 96% on room air. GENERAL: The patient was lying in bed, in no acute distress. Alert and oriented x3. HEENT: Normocephalic and atraumatic. NECK: Supple. No JVD or scleral icterus noted. CARDIOVASCULAR: Heart sounds were distant and difficult to auscultate, but from what I could hear, they were with a regular rate and rhythm with no discernible murmurs, gallops, or rubs. RESPIRATORY: Clear to auscultation bilaterally with no discernible wheezes or rales. ABDOMEN: Normoactive bowel sounds, soft, but mildly tense. Increased abdominal distention noted with pain in the midepigastric region only upon deep palpation. Positive for shifting dullness. EXTREMITIES: 2+ edema bilaterally up to the knees. LABORATORY DATA: CBC with a white blood cell count of 4.0, hemoglobin 10.8, hematocrit 31.5, and platelets 54. Chemistry with a sodium of 140, potassium 3.4, chloride 107, CO2 22, BUN 47, creatinine 2.71, glucose 126. AST 42, ALT 34, alkaline phosphatase 127, total bilirubin 1.2, albumin 2.3. INR 1.5. CA 19-9 is 655. CEA 2.55. AFP 77. IMAGING DATA: CT of the abdomen and pelvis was obtained on May 21, 2018, which shows cirrhotic morphology in addition to a large enhancing mass within the right lobe of the liver measuring 9.8 x 9.5 cm. There were also enlarged lymph nodes at the gastrohepatic ligament as well as splenomegaly noted at that time. A large cystic lesion was also seen within the L3 and lumbar vertebrae. Liver biopsy was performed on June 08, 2018, with pathology showing a poorly differentiated carcinoma of unknown primary. Repeat CT abdomen and pelvis was obtained on December 09, 2018, without any IV contrast showing no presence of the liver lesion, but did show moderate amount of ascites, enlargement of the mesenteric root mass to 5.8 cm and a lytic lesion at the L3 vertebra measuring now 4.3 cm, which is enlarging in size. Also seen was a destructive lesion within the acetabulum measuring approximately 5.6 cm. 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 Hepatocellular carcinoma: The patient initially presented with increased lower back pain that prompted imaging for further evaluation. On imaging, the patient was noted to have an L3 lytic lesion as well as liver lesion concerning for a malignant process. He ultimately underwent liver biopsy on June 08, 2018, which showed poorly differentiated carcinoma with an unknown primary origin based on special stains performed at that time. The patient has never had a colonoscopy before, but has not noticed any change in bowel habits nor has any imaging been indicative of a larger lesion within the colon, which should be there based on the size of the other metastatic lesions throughout the body. At this point, it seems that he has developed cirrhosis of the liver and subsequent hepatocellular carcinoma as a result and now metastatic to multiple areas within the body. He is currently presenting with new onset of a moderate amount of ascites within the belly as well as shifting dullness to confirm this on physical exam. More than likely, this is related to either onset of cirrhosis with hypoalbuminemia or could be related to the liver cancer itself contributing to further ascites. Given his decreasing functional status, advanced age, and evidence of metastatic disease, his overall prognosis is poor. The likelihood of being evaluated for liver transplant is extremely low again because of the presence of metastatic disease and his advanced age. Recommendations: 1. Would perform paracentesis for both diagnostic and therapeutic purposes for further evaluation of whether this is ascites from malignant process versus cirrhosis with portal hypertension. 2. I would refrain from any diuretics at this time given worsening renal function, which could be potentially indicative of hepatorenal syndrome given his evidence of cirrhosis. 3. Would treat his urinary tract infection, which could be potentially contributing to worsening creatinine as well. 4. Agree with Oncology consultation for further evaluation and treatment options related to metastatic hepatocellular carcinoma. Cirrhosis: The patient is presenting with cirrhotic morphology on imaging in addition to splenomegaly and thrombocytopenia consistent with a diagnosis of cirrhosis. At this point, the etiology of his cirrhosis is unknown with no family history of liver disease and no significant alcohol consumption in the past that might lead itself toward alcoholic cirrhosis. Per discussion with family, he had been overweight for the last 15 to 20 years, making nonalcoholic steatohepatitis and scar deposition related to this condition is a more likely diagnosis. Currently, he is presenting with decompensated disease as evidenced by the presence of a moderate amount of ascites and lower extremity edema. His current MELD score is 21, which carries a 7% to 10% 90-day mortality and would be characterized as a Child-Vidales classification B/C. Further evaluation for underlying liver pathology in light of metastatic hepatocellular carcinoma may be futile and that would not ultimately change the clinical outcome. Recommendations: 1. Would continue to trend his INR and bilirubin for signs of worsening hepatic dysfunction. 2. Given the presence of metastatic liver disease, a screening colonoscopy or screening EGD is not indicated at this time, as again it would not change his clinical outcome. 3. Would refrain from any diuretics as above given his worsening renal function. 4. Would treat his urinary tract infection and give consideration to infusion of IV albumin given the possibility of hepatorenal syndrome. We will continue to follow. Please call with any questions. Job ID: [id number]
[2018-12-11 06:19] LABS: Band 1 % (5-11); Eosinophils 6 % (0-10); Hemoglobin 11.1 g/dL (14.0-18.0); Lymphocytes 24 % (21-51); MDiff Complete? YES; Mean Corpuscular HGB CONC 33.3 g/dL (32.0-36.0); Mean Corpuscular Hemoglobin 36.2 pg (27.0-31.0); Mean Platelet Volume 7.8 fL (7.4-10.4); Metamyelocyte 1 % (0-0); Monocytes 4 % (0-10); Neutrophil 64 % (42-75); Platelet Count 62 thou/uL (130-400); Platelet Morphology Comment Appears Decreased; Red Blood Cell (RBC) Count 3.07 mill/uL (4.70-6.10); White Blood Cell (WBC) Count 5.5 thou/uL (4.8-10.8)
[2018-12-11 06:27] LABS: ALT (SGPT) 32 U/L (8-55); AST (SGOT) 35 U/L (5-34); Albumin 2.2 g/dL (3.4-4.8); Alkaline Phosphatase 125 U/L (40-150); Anion Gap 12 mmol/L (10-20); BUN (Urea Nitrogen) 46 mg/dL (8.4-25.7); Calc. Creatinine Clearance 32 mL/min (70-130); Calcium 8.3 mg/dL (7.8-10.44); Carbon Dioxide 21 mmol/L (23-31); Chloride 108 mmol/L (98-107); Estimated GFR-MDRD 24; Globulin 2.7 g/dL (2.4-3.5); Glucose 135 mg/dL (83-110); Magnesium 2.1 mg/dL (1.6-2.6); Potassium 3.2 mmol/L (3.5-5.1); Protein, Total 4.9 g/dL (5.8-8.1); Sodium 138 mmol/L (136-145)
--- NOTE | 2018-12-11 08:34 | CON ---
DATE OF CONSULTATION: 12/10/2018 REASON FOR CONSULTATION: Chronic kidney disease. REASON FOR ADMISSION: Weakness. HISTORY OF PRESENT ILLNESS: This is an 88-year-old male with history of type 2 diabetes, hypertension, hyperlipidemia, came to the hospital with weakness and is being evaluated, he does follow with Dr. Prather as outpatient and his creatinine was found to be 2.7 form his baseline of 1.09. The patient was also on treatment for hepatocellular carcinoma, but has been on hold for last 6 months because of his rehab needs and weakness. No chest pain or palpitation. The patient has been eating poorly per the family. PAST MEDICAL HISTORY: Positive for type 2 diabetes, hypertension, hyperlipidemia, GERD, hepatocellular carcinoma. PAST SURGICAL HISTORY: Left knee surgery, hernia repair, liver biopsy. HOME MEDICATIONS: 1. Demadex. 2. Sertraline. 3. Zofran. 4. Compazine. 5. Flomax. 6. Glucophage. 7. Exforge. 8. Spironolactone. 9. Crestor. 10. Omeprazole. 11. Coreg. ALLERGIES: NO KNOWN DRUG ALLERGIES. SOCIAL HISTORY: No smoking, alcohol, or illicit drugs. FAMILY HISTORY: No history of kidney disease. REVIEW OF SYSTEMS: CONSTITUTIONAL: Negative for weight loss or gain, ability to conduct usual activities. SKIN: Negative for rash, itching. EYES: Negative for double vision, pain. ENT/MOUTH: Negative for nose bleeding, neck stiffness, pain, tenderness. CARDIOVASCULAR: Negative for palpitations, dyspnea on exertion, orthopnea. RESPIRATORY: Negative for shortness of breath, wheezing, cough, hemoptysis, fever or night sweats. GASTROINTESTINAL: Negative for poor appetite, abdominal pain, heartburn, nausea, vomiting, constipation, or diarrhea. GENITOURINARY: Negative for urgency, frequency, dysuria, nocturia. MUSCULOSKELETAL: Negative for pain, swelling. NEUROLOGIC/PSYCHIATRIC: Negative for anxiety, depression. ALLERGY/IMMUNOLOGIC: Negative for skin rash, bleeding tendency. PHYSICAL EXAMINATION: GENERAL: This is an elderly male, in no apparent distress. VITAL SIGNS: Temperature 98.2, pulse 74, respirations 16, blood pressure 98/54. HEENT: Atraumatic, normocephalic. Oral mucosa moist. NECK: Supple. CV: S1 and S2. Regular rate and rhythm. RESPIRATORY: Clear. GI: Abdomen is soft. MUSCULOSKELETAL: . DERMATOLOGIC: No skin rash. NEUROLOGIC: Alert and awake. PSYCHIATRIC: Mood and affect normal. LABORATORY DATA: Potassium is 3.4, BUN is 47, creatinine is 2.7. ASSESSMENT: 1. Acute kidney injury on chronic kidney disease stage 3, most likely from volume depletion. The patient has been not eating very well. Continue hydration. 2. Anemia of chronic disease. 3. Edema, controlled. 4. Hypertension. 5. Hypokalemia. PLAN: Continue IV fluids. If tolerated, we will close monitor his cardiorespiratory status and continue antibiotics. Follow with Oncology. We will continue to follow. Renally dose all medications. Avoid nephrotoxins. Monitor vancomycin level and dose, avoid levels more than 20. We will follow. Thank you for the consult. Job ID: [id number]
--- NOTE | 2018-12-11 09:52 | PDOC.HOSPP ---
- Subjective Encounter Date: 12/11/18 Encounter Time: 09:00 Subjective: Patient seen and examined for Gen weakness/LUIS A. No new complaints. No overnight events - Objective Vital Signs & Weight: Vital Signs (12 hours) Temp Pulse Resp BP BP Pulse Ox 12/11/18 07:34 97.4 F L 85 18 100/55 L 93 L 12/11/18 04:00 97.4 F L 80 18 104/65 93 L 12/11/18 00:00 97.4 F L 69 18 116/65 93 L Weight Admit Weight 240 lb 3.2 oz Weight 243 lb 6.245 oz I&O: 12/10/18 12/11/18 12/12/18 06:59 06:59 06:59 Intake Total 595 Balance 595 Result Diagrams: 12/11/18 05:51 12/11/18 05:51 Additional Labs: Accuchecks 12/11/18 12/10/18 12/10/18 04:42 20:31 16:41 POC Glucose 118 H 167 H 178 H 12/10/18 10:46 POC Glucose 163 H Hospitalist ROS - Review of Systems Respiratory: denies: cough, dry, shortness of breath, hemoptysis, SOB with excertion, pleuritic pain, sputum, wheezing, other Cardiovascular: denies: chest pain, palpitations, orthopnea, paroxysmal noc. dyspnea, edema, light headedness, other - Medication Medications: Active Medications Generic Name Dose Route Start Last Admin Trade Name Freq PRN Reason Stop Dose Admin Folic Acid 1 mg 12/10/18 21:00 12/10/18 21:19 Folvite PO 1 mg BID JOSAFAT Administration Vancomycin HCl 1.5 gm/ Sodium 300 mls @ 200 mls/hr 12/10/18 22:00 12/10/18 22 :25 Chloride IVPB 300 mls Q24HR JOSAFAT Administration Ceftriaxone Sodium 1 gm/ 100 mls @ 200 mls/hr 12/10/18 15:00 12/10/18 15:17 Sodium Chloride IVPB 100 mls Q24HR JOSAFAT Administration Sodium Chloride 1,000 mls @ 30 mls/hr 12/10/18 14:46 12/10/18 15:18 Normal Saline 0.9% IV 1,000 mls .Q24H JOSAFAT Administration Pantoprazole Sodium 40 mg 12/10/18 09:00 12/10/18 09:59 Protonix PO 40 mg DAILY JOSAFAT Administration Saccharomyces Boulardii 250 mg 12/10/18 09:00 12/10/18 09:58 Florastor PO 250 mg DAILY JOSAFAT Administration Senna/Docusate Sodium 2 tab 12/09/18 21:00 12/10/18 21:19 Senokot S PO 2 tab BID JOSAFAT Administration Sodium Chloride 10 ml 12/09/18 21:00 12/10/18 21:23 Flush - Normal Saline IVF 10 ml Q12HR JOSAFAT Administration - Exam General Appearance: NAD Neck: supple, no JVD Heart: RRR, no rubs Respiratory: rhonchi Respiratory - other findings: dec AE at bases Gastrointestinal: soft, normal bowel sounds Extremities: 1+ LE edema Hosp A/P - Plan IMPRESSION: 1. Generalized weakness, multifactorial. 2. E coli Urinary tract infection. 3. Acute kidney injury on chronic kidney disease stage 2 4. Cirrhosis with portal hypertension and moderate amount of ascites. 5. Abnormal LFTs./Hepatocellular carcinoma with metastasis. 6. 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 7. Acute on chronic diastolic exacerbation. 8. Metabolic acidosis. 9. Staph bacteremia 10. Moderate protein-calorie malnutrition. 11. Macrocytic anemia. 12. Pancytopenia. 13. Diverticulosis. 14. Hypertension. 15. Diabetes mellitus type 2. 16. Gastroesophageal reflux disease. 17. Hyperlipidemia. PLAN: Echo reviewed Cont IV Ceftriaxone/Vancomycin Monitor Vancomycin level Paracentesis today Cont PT/OT Change IVF
--- NOTE | 2018-12-11 11:27 | PRG ---
DATE OF SERVICE: 12/11/2018 SUBJECTIVE: Patient was seen and examined at bedside and overnight events noted. Patient denies any shortness of breath or chest pain or palpitation. No history of nausea or vomiting or diarrhea or fever or chills or cramps. OBJECTIVE: GENERAL: This is an elderly male, in no apparent distress. VITAL SIGNS: Temperature 97.5. Heart rate 85. Respiratory rate 18. Blood pressure 100/55. HEENT: Atraumatic, normocephalic. Oral mucosa is moist NECK: Supple. CARDIOVASCULAR: S1, S2 heard. Rate and rhythm regular. RESPIRATORY: Clear to auscultation. GASTROINTESTINAL: Abdomen is soft. MUSCULOSKELETAL: No tenderness. No edema. DERMATOLOGIC: No skin rash. NEUROLOGIC: Alert and awake and oriented X3. No focal neurologic deficits. Moving all the extremities. PSYCHIATRIC: Mood and affect normal. LABORATORY DATA: Potassium 3.2, BUN is 46, and creatinine is 2.5. ASSESSMENT AND PLAN: 1. Acute kidney injury on chronic kidney disease, stage 3. Renal function slightly better. Creatinine 2.5 from 2.8, not able to have too much fluid. We will gently hydrate as tolerated. 2. Hypokalemia, replace. 3. Metabolic acidosis. 4. Anemia of chronic disease. 5. Hypertension. Plan to continue gentle hydration. Plan to have paracentesis today. We will follow. Job ID: [id number]
--- NOTE | 2018-12-11 11:45 | ULT ---
Ultrasound-guided paracentesis: HISTORY: Symptomatic ascites FINDINGS: Informed consent obtained prior to the procedure. Preprocedural imaging demonstrated signif icant ascites throughout the abdomen and pelvis. Right lower quadrant prepped and draped in normal sterile fashion and anesthetized with 1% buffered l idocaine. With direct sonographic guidance, 5 [place] Yueh catheter is advanced into the ascites and removal of the stylet yielded yellow fluid. 6 L were removed. The patient tolerated the procedure well. No postprocedural complications. IMPRESSION: Successful ultrasound-guided paracentesis yielding 6 L of yellow ascites. As requested, specimen was sent to laboratory for further analysis. Results are pending.
[2018-12-11 12:47] LABS: RBC Count-Automated (BF) 1205 /cumm; WBC/Nucleated-Auto (BF) 85 uL
[2018-12-11 13:45] LABS: BF Color Yellow; Body Fluid Source Ascites Body Fluid; Clarity Hazy (Clear); Tube # EDTA
[2018-12-11 13:52] LABS: BF Segmented Neutrophils 9 %; Cell Count Non Hematic 32 %; Lymphocytes 59 %
[2018-12-11] MEDS: Folic Acid 1 MG TAB PO SCH ×2 (14:08→20:34)
[2018-12-11] MEDS: Saccharomyces boulardii 250 MG CAP PO SCH (14:08)
[2018-12-11] MEDS: cefTRIAXone\\ROCEPHIN 1 GM in Sodium Chloride 0.9% 100 ML IVPB SCH (14:09)
[2018-12-11] MEDS: Senokot S 8.6-50 MG TAB PO SCH ×2 (14:15→19:54)
--- NOTE | 2018-12-11 16:49 | PRG ---
DATE OF SERVICE: 12/11/2018 REASON FOR CONSULTATION: Ascites, cirrhotic morphology on imaging, liver cancer with metastatic disease. SUBJECTIVE: The patient did well overnight with no acute events or problems. He did undergo paracentesis today with approximately 6 L of fluid removed, resulting in significantly less abdominal distention and increased comfort. He currently denies any nausea, vomiting, fevers, chills, abdominal pain, hematemesis, melena, or hematochezia. He had been able to tolerate 1 Nepro shake earlier today, but has thus far not had a significant appetite to continue oral intake. PHYSICAL EXAMINATION: VITAL SIGNS: Temperature 97.4, pulse 85, blood pressure 100/55, respiratory rate 18, and saturating 93% on room air. GENERAL: The patient was lying in bed, in no acute distress. Alert and oriented x4. CARDIOVASCULAR. Heart sounds are difficult to auscultate, but regular rate and rhythm with no discernible murmurs, gallops, or rubs. RESPIRATORY: Clear to auscultation bilaterally. ABDOMEN: Normoactive bowel sounds. Soft. Mild abdominal distention. No tenderness to palpation in any abdominal quadrant. Positive for shifting dullness. EXTREMITIES: 2+ edema bilaterally up to the knees. LABORATORY DATA: CBC with a white blood cell count of 5.5, hemoglobin 11.1, hematocrit 33.3, and platelets 62. Chemistry with a sodium of 138, potassium 3.2, chloride 108, CO2 of 21, BUN 46, creatinine 2.57, glucose 135, AST 35, ALT 32, alkaline phosphatase 125, total bilirubin 1.0, and AST 420. IMAGING DATA: No current GI imaging is available for review. ASSESSMENT AND PLAN: The patient is an 88-year-old male with past medical history of diabetes, hypertension, hyperlipidemia, gastroesophageal reflux disease, and what appears to be cirrhosis (based on cirrhotic morphology and thrombocytopenia), presenting with hepatocellular carcinoma with metastatic disease. 1. Hepatocellular carcinoma: a. The patient initially presented with increased lower back pain that prompted a workup that ultimately discovered a large liver mass in May 2018. Liver biopsy performed, showed poorly-differentiated carcinoma with an AFP of 77 at that time. However, in the interim, the patient has had a significant increase in his AFP to the point where it is now 420 and has had the development/enlargement of metastatic disease in the spine, hip, and mesentery. Paracentesis obtained on December 11, 2018, was consistent with portal hypertension, most likely related to replacement of the liver with liver cancer and/or probable cirrhosis resulting in the hepatocellular carcinoma. Transthoracic echo also mirrors this with fairly benign findings on that particular study. At this time, based on his labs and imaging, it seems he had developed cirrhosis of the liver and subsequently hepatocellular carcinoma with metastatic disease now to multiple areas of the body. This also resulted in increased ascites formation, which could be either due to portal hypertension versus carcinomatosis related to the hepatocellular carcinoma itself. Given his decreasing functional status, advanced age, and evidence of metastatic disease, his overall prognosis is poor. b. Recommendations: I. I would continue to refrain from diuretics at this time given his worsening renal function, which may be indicative of hepatorenal syndrome, but is currently down trending, making this less likely. II. We will consider administration of IV albumin to help with his kidneys. III. Continue to treat his urinary tract infection. IV. We would consider palliative care consultation at this time. 2. Cirrhosis: a. The patient is presenting with cirrhotic morphology on imaging in addition to splenomegaly, thrombocytopenia, consistent with a diagnosis of cirrhosis. At this point in time, the more likely etiology for his cirrhosis would be either nonalcoholic fatty liver disease or nonalcoholic steatohepatitis. However, currently engaging in a full liver workup would be futile at this point and would not change his clinical outcome. Currently, presenting with decompensated disease with a current MELD score of 21 and Child-Vidales classification B/C. b. Recommendations: I. While inpatient, I would continue to trend his INR and bilirubin for signs of worsening hepatic function. II. We would refrain from any diuretics given already worsening renal function and possibility of hepatorenal syndrome, albeit unlikely given his downtrending creatinine at this time. III. We would consider infusion of IV albumin as above, although if pursuing comfort care measures would be irrelevant. At this time, we have nothing additional to offer this particular patient with the palliative care consultation being a reasonable option. We will sign off at this time. Please call with any questions. Job ID: [id number]
[2018-12-11] MEDS ORDERED: Potassium Chloride 20 MEQ TAB PO SCH (17:00)
[2018-12-11] MEDS: Sodium Chloride 0.9% 1,000 ML IV SCH (18:49)
[2018-12-11 21:27] LABS: Vancomycin, Trough 16.4 ug/mL
--- NOTE | 2018-12-12 01:47 | CON ---
DATE OF CONSULTATION: 12/11/2018 REASON FOR CONSULTATION: Bacteremia. 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 He also has type 2 diabetes and atrial fibrillation and he was brought into the hospital, because of worsening ascites and hypotension. The patient has had IV fluids and has had paracentesis with 6 L removed with improvement and a sensation of abdominal distention. Currently, he denies any headaches, no visual symptoms, sore throat, odynophagia, dysphagia. No dyspnea or chest pain. No abdominal pain. He is able to void without any assistance and a diaper. He is unable to ambulate since radiation therapy to his lumbosacral spine area and involvement by tumor. PAST MEDICAL HISTORY: Includes type 2 diabetes, hypertension, atrial fibrillation, hyperlipidemia, degenerative joint disease, metastatic poorly differentiated cancer with bone and liver involvement and mesentry. PAST SURGICAL HISTORY: Hernia repair and knee replacement. ALLERGIES: NONE. FAMILY HISTORY: Noncontributory. SOCIAL HISTORY: lives in the area with , never smoker. CURRENT MEDICATIONS: 1. Ceftriaxone. 2. Folvite. 3. Glucagon. 4. Insulin. 5. Pantoprazole. 6. Vancomycin. PHYSICAL EXAMINATION: VITAL SIGNS: He has been afebrile since admission. His other vital signs are normal. O2 saturation 92-93%. SKIN: Area of bruising and linear distribution in the back area. Gluteal skin area with maceration, erythema and cracking of the skin. No lymphadenopathy. Ocular movements conjugate. Oral cavity is not remarkable. NECK: Supple. LUNGS: Symmetric. Clear breath sounds. HEART: S1-S2 irregular rate. ABDOMEN: Soft, not distended. No evidence of ascites at this time. Liver edge about 3 cm below the costal margin. No splenomegaly, no bladder distention. EXTREMITIES: Left knee replacement site with no inflammatory changes. Pulses are diminished in dorsalis pedis. Cap refill is normal. Plantar responses are indifferent. He is able to wiggle his toes, but he cannot lift the knees from the bed. He is awake, he has quite a bit of hearing impairment. LABORATORY DATA: White cell count 4.5 and 5.5, hemoglobin 11, platelets 60, 64% neutrophils, 24% lymphocytes. Creatinine 2.57, which is above his baseline of 1.09 in July 2018. Urinalysis with greater than 50 WBCs, ascitic fluid with 85 WBCs, 1200 RBCs, 59% lymphocytes. Microbiology with one set of blood cultures with coagulase negative Staphylococcus and there was an E. coli in the urine culture greater than 100,000 CFUs with a broad susceptibility profile. ASSESSMENT: 1. Metastatic undifferentiated carcinoma involving the liver, bone and mesentery, ascites, probably malignant ascites associated with abdominal distention status post therapeutic paracentesis. 2. Hypotension associated with decreased or decreased oral intake, which resolved rapidly after IV fluids. DISCUSSION: 1. Differential diagnosis includes hypovolemia associated with decreased oral intake secondary to cancer related anorexia. 2. The possibility of adrenal gland involvement and Addisonian crisis is considered, but appears to be less likely. 3. Bacteremia. Sepsis has been ruled out. The only thing that showed up in the infectious disease workup was a positive urine culture. I am not clear that this is necessarily related to the patient's presentation, probably not and I would advise discontinuation of antimicrobial therapy after today's dose. The organism in the blood culture is likely to represent a contaminant of the sample and does not require treatment. Job ID: [id number]
[2018-12-12 04:38] LABS: INR-International Normal Ratio 1.5; Prothrombin Time 18.3 SEC (12.0-14.7)
[2018-12-12 04:39] LABS: PTT 39.6 SEC (22.9-36.1)
[2018-12-12 04:44] LABS: Band 2 % (5-11); Hemoglobin 11.9 g/dL (14.0-18.0); Lymphocytes 8 % (21-51); MDiff Complete? YES; Macrocytosis SLIGHT = 6-15 cells (100X) (0-5/hpf); Mean Corpuscular Hemoglobin 37.1 pg (27.0-31.0); Mean Platelet Volume 7.8 fL (7.4-10.4); Monocytes 5 % (0-10); Neutrophil 85 % (42-75); Platelet Count 79 thou/uL (130-400); Platelet Morphology Comment Appears Decreased; RBC Distribution Width 14.2 % (11.5-14.5); White Blood Cell (WBC) Count 7.3 thou/uL (4.8-10.8)
[2018-12-12 04:56] LABS: ALT (SGPT) 29 U/L (8-55); AST (SGOT) 32 U/L (5-34); Alkaline Phosphatase 148 U/L (40-150); Anion Gap 11 mmol/L (10-20); BUN (Urea Nitrogen) 42 mg/dL (8.4-25.7); Calc. Creatinine Clearance 39 mL/min (70-130); Calcium 8.2 mg/dL (7.8-10.44); Carbon Dioxide 23 mmol/L (23-31); Chloride 109 mmol/L (98-107); Estimated GFR-MDRD 29; Globulin 2.8 g/dL (2.4-3.5); Glucose 164 mg/dL (83-110); Potassium 3.5 mmol/L (3.5-5.1); Protein, Total 4.8 g/dL (5.8-8.1); Sodium 139 mmol/L (136-145)
[2018-12-12] MEDS: Folic Acid 1 MG TAB PO SCH ×2 (10:40→20:58)
[2018-12-12] MEDS: Saccharomyces boulardii 250 MG CAP PO SCH (10:40)
[2018-12-12] MEDS: Senokot S 8.6-50 MG TAB PO SCH ×2 (10:41→20:58)
[2018-12-12] MEDS: Insulin Regular 300 UNITS/3 ML VIAL SC PRN (12:28)
--- NOTE | 2018-12-12 15:02 | PDOC.HOSPP ---
- Subjective Encounter Date: 12/12/18 Encounter Time: 14:30 Subjective: Patient seen and examined for LUIS A with gen weakness. Appetite slowly improving. Dysuria +. No hematuria. No fever or chills. No other complaints. No overnight events - Objective Vital Signs & Weight: Vital Signs (12 hours) Temp Pulse Resp BP Pulse Ox 12/12/18 08:00 98.0 F 86 20 119/61 94 L 12/12/18 04:17 93 L Weight Admit Weight 240 lb 3.2 oz Weight 243 lb 6.245 oz I&O: 12/11/18 12/12/18 12/13/18 06:59 06:59 06:59 Intake Total 900 Balance 900 Result Diagrams: 12/12/18 03:56 12/12/18 03:56 Additional Labs: Accuchecks 12/12/18 12/12/18 12/11/18 11:56 04:58 20:00 POC Glucose 210 H 142 H 173 H 12/11/18 16:34 POC Glucose 144 H Hospitalist ROS - Review of Systems Respiratory: denies: cough, dry, shortness of breath, hemoptysis, SOB with excertion, pleuritic pain, sputum, wheezing, other Cardiovascular: denies: chest pain, palpitations, orthopnea, paroxysmal noc. dyspnea, edema, light headedness, other - Medication Medications: Active Medications Generic Name Dose Route Start Last Admin Trade Name Freq PRN Reason Stop Dose Admin Folic Acid 1 mg 12/10/18 21:00 12/12/18 10:40 Folvite PO 1 mg BID JOSAFAT Administration Sodium Chloride 1,000 mls @ 30 mls/hr 12/10/18 14:46 12/11/18 18:49 Normal Saline 0.9% IV 1,000 mls .Q24H JOSAFAT Administration Insulin Human Regular 0 units 12/09/18 19:49 12/12/18 12:28 Humulin R SC 3 unit .MILD SLIDING SCALE PRN Administration Mild Correctional Scale Pantoprazole Sodium 40 mg 12/10/18 09:00 12/12/18 10:41 Protonix PO 40 mg DAILY JOSAFAT Administration Saccharomyces Boulardii 250 mg 12/10/18 09:00 12/12/18 10:40 Florastor PO 250 mg DAILY JOSAFAT Administration Senna/Docusate Sodium 2 tab 12/09/18 21:00 12/12/18 10:41 Senokot S PO 2 tab BID JOSAFAT Administration Sodium Chloride 10 ml 12/09/18 21:00 12/12/18 10:42 Flush - Normal Saline IVF 10 ml Q12HR JOSAFAT Administration - Exam General Appearance: NAD Neck: supple, no JVD Heart: RRR, no rubs Respiratory: rhonchi Respiratory - other findings: dec AE at bases Gastrointestinal: soft, non-tender, normal bowel sounds, distended Neurological: no new deficit Hosp A/P - Plan DVT proph w/SCDs IMPRESSION: 1. Generalized weakness, multifactorial. 2. E coli Urinary tract infection - on Ceftriaxone 3. Acute kidney injury on chronic kidney disease stage 2 - improving 4. Cirrhosis with portal hypertension and moderate amount of ascites. s/p paracentesis 5. Abnormal LFTs./Hepatocellular carcinoma with metastasis. AFP 421 6. [id number] central canal stenosis in the L3 vertebral body along with lytic lesion in the left iliac bone. Family declined further mngt 7. Acute on chronic diastolic exacerbation. improving 8. Metabolic acidosis. 9. Staph bacteremia - contaminant per ID 10. Moderate protein-calorie malnutrition. 11. Macrocytic anemia. 12. Pancytopenia. 13. Diverticulosis. 14. Hypertension. 15. Diabetes mellitus type 2. 16. Gastroesophageal reflux disease. 17. Hyperlipidemia. 18. BPH PLAN: Cont IV Ceftriaxone Cont IVF at KVO Cont PT/OT Resume Flomax
--- NOTE | 2018-12-12 15:22 | PRG ---
DATE OF SERVICE: 12/12/2018 SUBJECTIVE: Patient was seen and examined at bedside and overnight events noted. Patient denies any shortness of breath or chest pain or palpitation. No history of nausea or vomiting or diarrhea or fever or chills or cramps. OBJECTIVE: GENERAL: This is an elderly male, in no apparent distress. VITAL SIGNS: Temperature 98.0. Pulse 87. Respiratory rate 20. Blood pressure 98/61. HEENT: Atraumatic, normocephalic. Oral mucosa is moist NECK: Supple. CARDIOVASCULAR: S1, S2 heard. Rate and rhythm regular. RESPIRATORY: Clear to auscultation. GASTROINTESTINAL: Abdomen is soft. MUSCULOSKELETAL: No tenderness. No edema. DERMATOLOGIC: No skin rash. NEUROLOGIC: Alert and awake and oriented X3. No focal neurologic deficits. Moving all the extremities. PSYCHIATRIC: Mood and affect normal. LABORATORY DATA: Potassium 3.5, BUN is 42, and creatinine is 2.1. ASSESSMENT AND PLAN: 1. Acute kidney injury, getting better. 2. Chronic kidney disease, stage 3. 3. Hypokalemia. 4. Metabolic acidosis. 5. Anemia of chronic disease. 6. Hypertension. Labs are better. Avoid nephrotoxins. We will follow. Job ID: [id number]
[2018-12-12] MEDS: cefTRIAXone\\ROCEPHIN 1 GM in Sodium Chloride 0.9% 100 ML IVPB SCH (16:29)
[2018-12-12] MEDS: Ondansetron PF 4 MG/2 ML Vial IVP PRN (16:29)
[2018-12-12] MEDS: Sodium Chloride 0.9% 1,000 ML IV SCH (16:30)
--- NOTE | 2018-12-12 17:03 | RAD ---
KUB: 12/12/2018 HISTORY: Nausea, vomiting FINDINGS: Supine imaging limits evaluation for free intraperitoneal air and small bowel obstruction. There is increased density in the left lung base, suggesting left pleural fluid. There is relative lucency involving the posterior aspect of the acetabulum on the left, consistent with the lytic lesio n seen on recent CT exam. The bowel gas pattern appears nonobstructed. There is a lytic lesion within the L3 vertebral body on the right as well. IMPRESSION: Nonobstructed bowel gas pattern. Osseous lytic lesions, suspicious for metastatic disease .
[2018-12-12] MEDS: Tamsulosin HCl 0.4 MG CAP PO SCH (20:58)
[2018-12-13 04:17] LABS: Albumin 2.1 g/dL (3.4-4.8); Anion Gap 9 mmol/L (10-20); BUN (Urea Nitrogen) 41 mg/dL (8.4-25.7); BUN/Creatinine Ratio 19.52; Calc. Creatinine Clearance 39 mL/min (70-130); Calcium 8.5 mg/dL (7.8-10.44); Carbon Dioxide 23 mmol/L (23-31); Chloride 110 mmol/L (98-107); Estimated GFR-MDRD 30; Glucose 140 mg/dL (83-110); Potassium 3.6 mmol/L (3.5-5.1); Sodium 138 mmol/L (136-145)
[2018-12-13] MEDS: Acetaminophen 325 MG TAB PO PRN (08:01)
[2018-12-13] MEDS: Folic Acid 1 MG TAB PO SCH ×2 (08:02→20:20)
[2018-12-13] MEDS: Saccharomyces boulardii 250 MG CAP PO SCH (08:02)
[2018-12-13] MEDS: Senokot S 8.6-50 MG TAB PO SCH (08:03)
[2018-12-13] MEDS: Sodium Chloride 0.9% 1,000 ML IV SCH (08:03)
[2018-12-13] MEDS: Albumin 25% 25 GM/100 ML BOT IVPB SCH ×2 (08:18→15:16)
--- NOTE | 2018-12-13 15:04 | PRG ---
DATE OF SERVICE: 12/13/2018 SUBJECTIVE: Patient was seen and examined at bedside and overnight events noted. Patient denies any shortness of breath or chest pain or palpitation. No history of nausea or vomiting or diarrhea or fever or chills or cramps. OBJECTIVE: GENERAL: This is an elderly male, in no apparent distress. VITAL SIGNS: Temperature 97.6. Heart rate 90. Respiratory rate . Blood pressure 105/64. HEENT: Atraumatic, normocephalic. Oral mucosa is moist NECK: Supple. CARDIOVASCULAR: S1, S2 heard. Rate and rhythm regular. RESPIRATORY: Clear to auscultation. GASTROINTESTINAL: Abdomen is soft. MUSCULOSKELETAL: No tenderness. No edema. DERMATOLOGIC: No skin rash. NEUROLOGIC: Alert and awake and oriented X3. No focal neurologic deficits. Moving all the extremities. PSYCHIATRIC: Mood and affect normal. LABORATORY DATA: Potassium is 3.6, BUN is 41, and creatinine is 2.1. ASSESSMENT AND PLAN: 1. Acute kidney injury on chronic kidney stage 3, stable. Creatinine is slowly getting better. 2. Hypokalemia. 3. Metabolic acidosis. 4. Anemia of chronic disease. 5. Hypertension. Labs are slowly getting better. Avoid nephrotoxins and we will follow. Job ID: [id number]
[2018-12-13] MEDS: cefTRIAXone\\ROCEPHIN 1 GM in Sodium Chloride 0.9% 100 ML IVPB SCH (15:15)
--- NOTE | 2018-12-13 15:20 | PDOC.HOSPP ---
- Subjective Encounter Date: 12/13/18 Encounter Time: 11:15 Subjective: Patient seen and examined for LUIS A/Gen weakness. Feels better. No new complaints. No overnight events - Objective Vital Signs & Weight: Vital Signs (12 hours) Temp Pulse Resp BP BP Pulse Ox 12/13/18 11:00 97.6 F 95 20 105/64 96 12/13/18 08:00 95 12/13/18 07:50 97.8 F 105 H 18 87/52 L Weight Admit Weight 240 lb 3.2 oz Weight 243 lb 6.245 oz I&O: 12/12/18 12/13/18 12/14/18 06:59 06:59 06:59 Intake Total 1450 600 Balance 1450 600 Result Diagrams: 12/12/18 03:56 12/13/18 03:47 Additional Labs: Accuchecks 12/13/18 12/13/18 12/12/18 11:07 04:33 19:31 POC Glucose 145 H 128 H 153 H 12/12/18 16:40 POC Glucose 168 H Hospitalist ROS - Review of Systems Cardiovascular: denies: chest pain, palpitations, orthopnea, paroxysmal noc. dyspnea, edema, light headedness, other Gastrointestinal: denies: nausea, vomiting, abdominal pain, diarrhea, constipation, melena, hematochezia, other - Medication Medications: Active Medications Generic Name Dose Route Start Last Admin Trade Name Freq PRN Reason Stop Dose Admin Acetaminophen 650 mg 12/09/18 19:49 12/13/18 08:01 Tylenol PO 650 mg Q4H PRN Administration Headache/Fever/Mild Pain (1-3) Albumin Human 25 gm 12/13/18 09:00 12/13/18 08:18 Albumin 25% IVPB 12/14/18 01:01 25 gm 0100,0900,1700 JOSAFAT Administration Folic Acid 1 mg 12/10/18 21:00 12/13/18 08:02 Folvite PO 1 mg BID JOSAFAT Administration Sodium Chloride 1,000 mls @ 30 mls/hr 12/10/18 14:46 12/13/18 08:03 Normal Saline 0.9% IV 1,000 mls .Q24H JOSAFAT Administration Ceftriaxone Sodium 1 gm/ 100 mls @ 200 mls/hr 12/12/18 15:00 09/21/19 16:29 Sodium Chloride IVPB 100 mls Q24HR JOSAFAT Administration Insulin Human Regular 0 units 12/09/18 19:49 12/12/18 12:28 Humulin R SC 3 unit .MILD SLIDING SCALE PRN Administration Mild Correctional Scale Lactulose 10 gm 12/12/18 15:00 12/13/18 08:01 Lactulose PO 10 gm TID JOSAFAT Administration Ondansetron HCl 4 mg 12/09/18 19:49 12/12/18 16:29 Zofran IVP 4 mg Q6H PRN Administration Nausea/Vomiting Pantoprazole Sodium 40 mg 12/10/18 09:00 12/13/18 08:02 Protonix PO 40 mg DAILY JOSAFAT Administration Saccharomyces Boulardii 250 mg 12/10/18 09:00 12/13/18 08:02 Florastor PO 250 mg DAILY JOSAFAT Administration Sertraline HCl 25 mg 12/13/18 09:00 12/13/18 08:02 Zoloft PO 25 mg DAILY JOSAFAT Administration Sodium Chloride 10 ml 12/09/18 21:00 12/13/18 08:03 Flush - Normal Saline IVF Not Given Q12HR JOSAFAT Tamsulosin HCl 0.4 mg 12/12/18 21:00 12/12/18 20:58 Flomax PO 0.4 mg HS JOSAFAT Administration - Exam General Appearance: NAD Heart: RRR, no rubs Respiratory: CTAB, no rales Gastrointestinal: soft, non-tender, normal bowel sounds Hosp A/P - Plan IMPRESSION: 1. Generalized weakness, multifactorial. 2. E coli Urinary tract infection - on Ceftriaxone 3. Metabolic acidosis/Acute kidney injury on chronic kidney disease stage 2 - improving 4. Cirrhosis with portal hypertension and moderate amount of ascites. s/p paracentesis 5. Abnormal LFTs./Hepatocellular carcinoma with metastasis. AFP 421 6. Xbidfmij-zp-bcmezy central canal stenosis in the L3 vertebral body along with lytic lesion in the left iliac bone. Family declined further mngt 7. Acute on chronic diastolic exacerbation. improving 8. Hypotension 9. Staph bacteremia - contaminant per ID 10. Moderate protein-calorie malnutrition. 11. Macrocytic anemia. 12. Pancytopenia. 13. Diverticulosis. 14. Hypertension. 15. Diabetes mellitus type 2. 16. Gastroesophageal reflux disease. 17. Hyperlipidemia. 18. BPH PLAN: Start IV Albumin due to Hypotension Cont IV Ceftriaxone for UTI Cont PT/OT Cont Flomax Inpt Rehab eval
[2018-12-13] MEDS: Tamsulosin HCl 0.4 MG CAP PO SCH (20:20)
[2018-12-14] MEDS: Albumin 25% 25 GM/100 ML BOT IVPB SCH (00:05)
[2018-12-14 05:45] LABS: Hemoglobin 11.3 g/dL (14.0-18.0); Platelet Count 67 thou/uL (130-400)
[2018-12-14 06:06] LABS: Albumin 2.8 g/dL (3.4-4.8); Anion Gap 9 mmol/L (10-20); BUN (Urea Nitrogen) 40 mg/dL (8.4-25.7); Calc. Creatinine Clearance 42 mL/min (70-130); Carbon Dioxide 24 mmol/L (23-31); Chloride 110 mmol/L (98-107); Estimated GFR-MDRD 32; Glucose 133 mg/dL (83-110); Phosphorus 2.9 mg/dL (2.3-4.7); Potassium 3.6 mmol/L (3.5-5.1); Sodium 139 mmol/L (136-145)
[2018-12-14] MEDS: Folic Acid 1 MG TAB PO SCH ×2 (08:48→21:44)
[2018-12-14] MEDS: Saccharomyces boulardii 250 MG CAP PO SCH (08:48)
[2018-12-14] MEDS: Acetaminophen 325 MG TAB PO PRN (08:52)
--- NOTE | 2018-12-14 11:52 | PRG ---
DATE OF SERVICE: 12/14/2018 SUBJECTIVE: This is an 88-year-old gentleman, being seen for acute kidney injury. The patient denied any nausea, vomiting, or chest pain. OBJECTIVE: GENERAL: The patient is awake and alert. VITAL SIGNS: Afebrile, pulse 83, breathing 16, and blood pressure 100/63. GENERAL APPEARANCE AND MENTAL STATUS: Fair. HEAD/NECK: Normocephalic. Atraumatic. EYES: EOMI. No deformity. EARS: Clear. No ulcers. NOSE: Intact. No lesions. MOUTH: Clear. No discharge. THROAT: Clear. No exudate. LUNGS: Clear. No crackles. CARDIAC: S1, S2. No rub. ABDOMEN: Benign. Bowel sounds positive. GENITALIA/RECTUM: [place] absent. BACK/EXTREMITIES: Edema 0+. NEUROLOGICAL: Alert and motor intact. SKIN: LYMPHATICS: LABORATORY DATA: Labs reviewed. Hemoglobin 11.3. Creatinine 1.9. ASSESSMENT AND PLAN: 1. Acute kidney injury, improved. 2. Hypertension, stable. 3. Anemia, stable. 4. Acute tubular necrosis, improved. 5. Chronic kidney disease stage 3, stable. Job ID: [id number]
[2018-12-14] MEDS: cefTRIAXone\\ROCEPHIN 1 GM in Sodium Chloride 0.9% 100 ML IVPB SCH (15:43)
[2018-12-14] MEDS: Sodium Chloride 0.9% 1,000 ML IV SCH (15:43)
[2018-12-14] MEDS: Tamsulosin HCl 0.4 MG CAP PO SCH (21:44)
--- NOTE | 2018-12-14 22:54 | PDOC.HOSPP ---
- Subjective Encounter Date: 12/14/18 Encounter Time: 08:30 Subjective: Patient seen and examined for Gen weakneess/LUIS A. Feels better. No new complaints. No overnight events - Objective Vital Signs & Weight: Vital Signs (12 hours) Temp Pulse Resp BP Pulse Ox 12/14/18 19:33 98.3 F 87 16 101/65 94 L Weight Admit Weight 240 lb 3.2 oz Weight 243 lb 6.245 oz I&O: 12/13/18 12/14/18 12/15/18 06:59 06:59 06:59 Intake Total 1450 800 Balance 1450 800 Result Diagrams: 12/14/18 05:32 12/14/18 05:32 Additional Labs: Accuchecks 12/14/18 12/14/18 12/14/18 19:35 16:10 11:10 POC Glucose 191 H 189 H 175 H Hospitalist ROS - Review of Systems Respiratory: denies: cough, dry, shortness of breath, hemoptysis, SOB with excertion, pleuritic pain, sputum, wheezing, other Cardiovascular: denies: chest pain, palpitations, orthopnea, paroxysmal noc. dyspnea, edema, light headedness, other - Medication Medications: Active Medications Generic Name Dose Route Start Last Admin Trade Name Freq PRN Reason Stop Dose Admin Acetaminophen 650 mg 12/09/18 19:49 12/14/18 08:52 Tylenol PO 650 mg Q4H PRN Administration Headache/Fever/Mild Pain (1-3) Folic Acid 1 mg 12/10/18 21:00 12/14/18 21:44 Folvite PO 1 mg BID JOSAFAT Administration Sodium Chloride 1,000 mls @ 30 mls/hr 12/10/18 14:46 12/14/18 15:43 Normal Saline 0.9% IV 1,000 mls .Q24H JOSAFAT Administration Ceftriaxone Sodium 1 gm/ 100 mls @ 200 mls/hr 12/12/18 15:00 12/14/18 15:43 Sodium Chloride IVPB 100 mls Q24HR JOSAFAT Administration Insulin Human Regular 0 units 12/09/18 19:49 12/12/18 12:28 Humulin R SC 3 unit .MILD SLIDING SCALE PRN Administration Mild Correctional Scale Lactulose 10 gm 12/12/18 15:00 12/14/18 21:44 Lactulose PO 10 gm TID JOSAFAT Administration Ondansetron HCl 4 mg 12/09/18 19:49 12/12/18 16:29 Zofran IVP 4 mg Q6H PRN Administration Nausea/Vomiting Pantoprazole Sodium 40 mg 12/10/18 09:00 12/14/18 08:48 Protonix PO 40 mg DAILY JOSAFAT Administration Saccharomyces Boulardii 250 mg 12/10/18 09:00 12/14/18 08:48 Florastor PO 250 mg DAILY JOSAFAT Administration Sertraline HCl 25 mg 12/13/18 09:00 12/14/18 08:48 Zoloft PO 25 mg DAILY JOSAFAT Administration Sodium Chloride 10 ml 12/09/18 21:00 12/14/18 21:44 Flush - Normal Saline IVF Not Given Q12HR JOSAFAT Tamsulosin HCl 0.4 mg 12/12/18 21:00 12/14/18 21:44 Flomax PO 0.4 mg HS JOSAFAT Administration - Exam General Appearance: NAD Heart: RRR, no rubs Respiratory: CTAB, no rales Gastrointestinal: soft, non-tender, normal bowel sounds Extremities: no edema Hosp A/P - Plan IMPRESSION: 1. Generalized weakness, multifactorial. 2. E coli Urinary tract infection - on Ceftriaxone 3. Metabolic acidosis/Acute kidney injury on chronic kidney disease stage 2 - improving 4. Cirrhosis with portal hypertension and moderate amount of ascites. s/p paracentesis 5. Abnormal LFTs./Hepatocellular carcinoma with metastasis. AFP 421 6. Chvevnzb-xg-pnzsos central canal stenosis in the L3 vertebral body along with lytic lesion in the left iliac bone. Family declined further mngt 7. Acute on chronic diastolic exacerbation. improving 8. Hypotension 9. Staph bacteremia - contaminant per ID 10. Moderate protein-calorie malnutrition. 11. Macrocytic anemia. 12. Pancytopenia. 13. Diverticulosis. 14. Hypertension. 15. Diabetes mellitus type 2. 16. Gastroesophageal reflux disease. 17. Hyperlipidemia. 18. BPH PLAN: Cont IV Ceftriaxone for UTI - dc in 1-2 days Cont Flomax BMP in AM Inpt Rehab vs SNF pending Cont current meds as above
[2018-12-15 06:25] LABS: Anion Gap 10 mmol/L (10-20); BUN (Urea Nitrogen) 40 mg/dL (8.4-25.7); Calc. Creatinine Clearance 42 mL/min (70-130); Calcium 8.6 mg/dL (7.8-10.44); Carbon Dioxide 18 mmol/L (23-31); Chloride 110 mmol/L (98-107); Estimated GFR-MDRD 33; Glucose 146 mg/dL (83-110); Potassium 3.4 mmol/L (3.5-5.1); Sodium 135 mmol/L (136-145)
[2018-12-15] MEDS: Saccharomyces boulardii 250 MG CAP PO SCH ×2 (08:08→08:10)
[2018-12-15] MEDS: Folic Acid 1 MG TAB PO SCH ×2 (08:08→21:08)
[2018-12-15] MEDS: Sodium Chloride 0.9% 1,000 ML IV SCH ×2 (15:10→21:12)
[2018-12-15] MEDS: cefTRIAXone\\ROCEPHIN 1 GM in Sodium Chloride 0.9% 100 ML IVPB SCH (15:10)
--- NOTE | 2018-12-15 15:59 | PRG ---
DATE OF SERVICE: 12/15/2018 SUBJECTIVE: This is an 88-year-old gentleman, being seen for acute kidney injury. The patient denied any nausea, vomiting, or chest pain. OBJECTIVE: See above. GENERAL: The patient is awake and alert. VITAL SIGNS: Afebrile, pulse 77, breathing 16, and blood pressure 99/50. GENERAL APPEARANCE AND MENTAL STATUS: Fair. HEAD/NECK: Normocephalic. Atraumatic. EYES: EOMI. No deformity. EARS: Clear. No ulcers. NOSE: Intact. No lesions. MOUTH: Clear. No discharge. THROAT: Clear. No exudate. LUNGS: Clear. No crackles. CARDIAC: S1, S2. No rub. ABDOMEN: Benign. Bowel sounds positive. GENITALIA/RECTUM: [place] absent. BACK/EXTREMITIES: Edema 0+. NEUROLOGICAL: Alert and motor intact. SKIN: LYMPHATICS: LABORATORY DATA: Labs show hemoglobin 11.3. Potassium 3.4, creatinine 1.9. ASSESSMENT AND PLAN: 1. Acute kidney injury with chronic kidney disease, stable. 2. Hypertension, stable. 3. Anemia, stable. 4. Hypokalemia. Recommend potassium replacement. 5. Metabolic acidosis, stable. No indication for dialysis. Job ID: [id number]
--- NOTE | 2018-12-15 18:11 | PDOC.HOSPP ---
- Subjective Encounter Date: 12/15/18 Encounter Time: 18:00 Subjective: f/u for UTI with E. coli on Rocephin x 6 days. Feels ok overall but remains weak. Planning on to transition to SNF. - Objective Vital Signs & Weight: Vital Signs (12 hours) Temp Pulse Resp BP Pulse Ox 12/15/18 07:34 98.0 F 107 H 24 H 99/50 L 93 L Weight Admit Weight 240 lb 3.2 oz Weight 233 lb 7 oz I&O: 12/14/18 12/15/18 12/16/18 06:59 06:59 06:59 Intake Total 800 Balance 800 Result Diagrams: 12/14/18 05:32 12/15/18 05:52 Additional Labs: Accuchecks 12/15/18 12/15/18 12/14/18 11:13 04:19 19:35 POC Glucose 199 H 145 H 191 H Microbiology 12/13/18 18:00 Stool C. difficile GDH Antigen & Toxins - Final 12/09/18 17:33 Venous blood - Left Hand Blood Culture - Final Coagulase Neg Staphylococcus 12/09/18 17:32 Venous blood - Right Hand Blood Culture - Final NO GROWTH IN 5 DAYS 12/09/18 16:03 Urine Straight Catheter Urine Culture - Final Escherichia coli 12/11/18 11:15 Ascites Fluid Body Fluid Culture - Preliminary Laboratory Tests 12/12/18 12/13/18 12/14/18 03:56 03:47 05:32 Potassium 3.5 3.6 3.6 Hospitalist ROS - Medication Medications: Active Medications Generic Name Dose Route Start Last Admin Trade Name Freq PRN Reason Stop Dose Admin Acetaminophen 650 mg 12/09/18 19:49 12/14/18 08:52 Tylenol PO 650 mg Q4H PRN Administration Headache/Fever/Mild Pain (1-3) Folic Acid 1 mg 12/10/18 21:00 12/15/18 08:08 Folvite PO 1 mg BID JOSAFAT Administration Sodium Chloride 1,000 mls @ 30 mls/hr 12/10/18 14:46 12/15/18 15:10 Normal Saline 0.9% IV 1,000 mls .Q24H JOSAFAT Administration Ceftriaxone Sodium 1 gm/ 100 mls @ 200 mls/hr 12/12/18 15:00 12/15/18 15:10 Sodium Chloride IVPB 100 mls Q24HR JOSAFAT Administration Insulin Human Regular 0 units 12/09/18 19:49 12/12/18 12:28 Humulin R SC 3 unit .MILD SLIDING SCALE PRN Administration Mild Correctional Scale Lactulose 10 gm 12/15/18 09:00 12/15/18 08:07 Lactulose PO 10 gm DAILY JOSAFAT Administration Ondansetron HCl 4 mg 12/09/18 19:49 12/12/18 16:29 Zofran IVP 4 mg Q6H PRN Administration Nausea/Vomiting Pantoprazole Sodium 40 mg 12/10/18 09:00 12/15/18 08:08 Protonix PO 40 mg DAILY JOSAFAT Administration Saccharomyces Boulardii 250 mg 12/10/18 09:00 12/15/18 08:10 Florastor PO 250 mg DAILY JOSAFAT Administration Sertraline HCl 25 mg 12/13/18 09:00 12/15/18 08:08 Zoloft PO 25 mg DAILY JOSAFAT Administration Sodium Chloride 10 ml 12/09/18 21:00 12/15/18 08:08 Flush - Normal Saline IVF Not Given Q12HR JOSAFAT Tamsulosin HCl 0.4 mg 12/12/18 21:00 12/14/18 21:44 Flomax PO 0.4 mg HS JOSAFAT Administration - Exam General Appearance: NAD, awake alert Eye: PERRL, anicteric sclera ENT: normocephalic atraumatic, no oropharyngeal lesions Neck: supple, symmetric, no JVD, no thyromegaly, no lymphadenopathy Heart: RRR, no gallops, no rubs, normal peripheral pulses Respiratory: CTAB, no wheezes, no rales Gastrointestinal: soft, non-tender, non-distended, normal bowel sounds Extremities: no cyanosis, 2+ LE edema Skin: normal turgor Neurological: cranial nerve grossly intact, no new deficit Musculoskeletal: generalized weakness Psychiatric: oriented to person, oriented to place, somnolent Hosp A/P (1) E. 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
[2018-12-15] MEDS: Tamsulosin HCl 0.4 MG CAP PO SCH (21:08)
[2018-12-15] MEDS: Ondansetron PF 4 MG/2 ML Vial IVP PRN (22:20)
[2018-12-16 04:40] LABS: Anion Gap 12 mmol/L (10-20); BUN (Urea Nitrogen) 42 mg/dL (8.4-25.7); Calc. Creatinine Clearance 34 mL/min (70-130); Calcium 8.7 mg/dL (7.8-10.44); Carbon Dioxide 19 mmol/L (23-31); Chloride 109 mmol/L (98-107); Estimated GFR-MDRD 27; Glucose 212 mg/dL (83-110); Potassium 3.3 mmol/L (3.5-5.1); Sodium 137 mmol/L (136-145)
[2018-12-16] MEDS: Saccharomyces boulardii 250 MG CAP PO SCH (08:23)
[2018-12-16] MEDS: Folic Acid 1 MG TAB PO SCH ×2 (08:24→20:05)
[2018-12-16] MEDS: Potassium Chloride 10 MEQ TAB PO SCH ×2 (08:24→16:16)
[2018-12-16] MEDS: Ondansetron PF 4 MG/2 ML Vial IVP PRN (11:49)
[2018-12-16] MEDS: Insulin Regular 300 UNITS/3 ML VIAL SC PRN ×2 (11:53→16:15)
--- NOTE | 2018-12-16 13:07 | PRG ---
DATE OF SERVICE: SUBJECTIVE: This is an 88-year-old male being seen for acute kidney injury. The patient denied nausea, vomiting, or chest pain. OBJECTIVE: GENERAL: The patient is awake and alert. VITAL SIGNS: Pulse 92, breathing 16, blood pressure 122/86. GENERAL APPEARANCE AND MENTAL STATUS: Fair. HEAD/NECK: Normocephalic. Atraumatic. EYES: EOMI. No deformity. EARS: Clear. No ulcers. NOSE: Intact. No lesions. MOUTH: Clear. No discharge. THROAT: Clear. No exudate. LUNGS: Clear. No crackles. CARDIAC: S1, S2. No rub. ABDOMEN: Benign. Bowel sounds positive. GENITALIA/RECTUM: [place] absent. BACK/EXTREMITIES: Edema 0+. NEUROLOGICAL: Alert and motor intact. SKIN: LYMPHATICS: LABORATORY DATA: Labs show hemoglobin 11.3. Creatinine 2.3. ASSESSMENT AND PLAN: 1. Acute kidney injury with chronic kidney disease due to acute tubular necrosis. Continue hydration. 2. Hypertension, stable. 3. Hypokalemia, recommend 20 mEq of potassium. No indication for dialysis. Medication based on GFR appropriate. Overall prognosis is poor. Job ID: [id number]
[2018-12-16] MEDS: cefTRIAXone\\ROCEPHIN 1 GM in Sodium Chloride 0.9% 100 ML IVPB SCH (14:08)
[2018-12-16] MEDS: Sodium Chloride 0.9% 1,000 ML IV SCH (14:10)
[2018-12-16] MEDS: Tamsulosin HCl 0.4 MG CAP PO SCH (20:05)
--- NOTE | 2018-12-16 21:32 | PDOC.HOSPP ---
- Subjective Encounter Date: 12/16/18 Encounter Time: 08:30 Subjective: Patient seen and examined for gen weakness. Feels slighlty better. No fever or chills. No new complaints. No overnight events - Objective Vital Signs & Weight: Vital Signs (12 hours) Temp Pulse Resp BP Pulse Ox 12/16/18 19:10 97.6 F 80 20 100/67 95 Weight Admit Weight 240 lb 3.2 oz Weight 237 lb 1 oz I&O: 12/15/18 12/16/18 12/17/18 06:59 06:59 06:59 Intake Total 1180 Balance 1180 Result Diagrams: 12/14/18 05:32 12/16/18 04:05 Additional Labs: Accuchecks 12/16/18 12/16/18 12/16/18 19:12 16:06 11:25 POC Glucose 199 H 194 H 191 H 12/16/18 04:40 POC Glucose 207 H Hospitalist ROS - Review of Systems Cardiovascular: denies: chest pain, palpitations, orthopnea, paroxysmal noc. dyspnea, edema, light headedness, other Gastrointestinal: denies: nausea, vomiting, abdominal pain, diarrhea, constipation, melena, hematochezia, other - Medication Medications: Active Medications Generic Name Dose Route Start Last Admin Trade Name Freq PRN Reason Stop Dose Admin Acetaminophen 650 mg 12/09/18 19:49 12/14/18 08:52 Tylenol PO 650 mg Q4H PRN Administration Headache/Fever/Mild Pain (1-3) Folic Acid 1 mg 12/10/18 21:00 12/16/18 20:05 Folvite PO 1 mg BID JOSAFAT Administration Sodium Chloride 1,000 mls @ 30 mls/hr 12/10/18 14:46 12/16/18 14:10 Normal Saline 0.9% IV Not Given .Q24H JOSAFAT Ceftriaxone Sodium 1 gm/ 100 mls @ 200 mls/hr 12/12/18 15:00 12/16/18 14:08 Sodium Chloride IVPB 100 mls Q24HR JOSAFAT Administration Insulin Human Regular 0 units 12/09/18 19:49 12/16/18 16:15 Humulin R SC 2 unit .MILD SLIDING SCALE PRN Administration Mild Correctional Scale Lactulose 10 gm 12/15/18 09:00 12/16/18 08:24 Lactulose PO 10 gm DAILY JOSAFAT Administration Ondansetron HCl 4 mg 12/09/18 19:49 12/16/18 11:49 Zofran IVP 4 mg Q6H PRN Administration Nausea/Vomiting Pantoprazole Sodium 40 mg 12/10/18 09:00 12/16/18 08:24 Protonix PO 40 mg DAILY JOSAFAT Administration Saccharomyces Boulardii 250 mg 12/10/18 09:00 12/16/18 08:23 Florastor PO 250 mg DAILY JOSAFAT Administration Sertraline HCl 25 mg 12/13/18 09:00 12/16/18 08:24 Zoloft PO 25 mg DAILY JOSAFAT Administration Sodium Chloride 10 ml 12/09/18 21:00 12/16/18 20:05 Flush - Normal Saline IVF 10 ml Q12HR JOSAFAT Administration Tamsulosin HCl 0.4 mg 12/12/18 21:00 12/16/18 20:05 Flomax PO 0.4 mg HS JOSAFAT Administration - Exam General Appearance: NAD Heart: RRR, no rubs Respiratory: CTAB, no wheezes Gastrointestinal: soft, non-tender, normal bowel sounds Hosp A/P - Plan IMPRESSION: 1. Generalized weakness, multifactorial. 2. E coli Urinary tract infection - on Ceftriaxone 3. Metabolic acidosis/Acute kidney injury on chronic kidney disease stage 2 - improving 4. Cirrhosis with portal hypertension and moderate amount of ascites. s/p paracentesis 5. Abnormal LFTs./Hepatocellular carcinoma with metastasis. AFP 421 6. Qmnmqugl-ft-ixeskz central canal stenosis in the L3 vertebral body along with lytic lesion in the left iliac bone. Family declined further mngt 7. Acute on chronic diastolic exacerbation. improving 8. Hypotension 9. Staph bacteremia - contaminant per ID 10. Moderate protein-calorie malnutrition. 11. Macrocytic anemia. 12. Pancytopenia. 13. Diverticulosis. 14. Hypertension. 15. Diabetes mellitus type 2. 16. Gastroesophageal reflux disease. 17. Hyperlipidemia. 18. BPH PLAN: Replace Potassium Cont IV Ceftriaxone for UTI - dc Atbx at dc Cont Flomax SNF placement pending Cont current meds as above
[2018-12-17] MEDS: Saccharomyces boulardii 250 MG CAP PO SCH (08:14)
[2018-12-17] MEDS: Folic Acid 1 MG TAB PO SCH ×2 (08:14→21:04)
[2018-12-17] MEDS: Ondansetron PF 4 MG/2 ML Vial IVP PRN (09:56)
[2018-12-17] MEDS: Megestrol Acetate 800 MG/20 ML UDCUP PO SCH (09:57)
--- NOTE | 2018-12-17 10:34 | PRG ---
DATE OF SERVICE: 12/17/2018 SUBJECTIVE: The patient is seen and examined at the bedside. His is present in the room during my visit. He does not eat much. He is trying to participate in PT. Yesterday, he was able to sit on the edge of the bed and do some exercises. OBJECTIVE: VITAL SIGNS: Blood pressure is 93/59, pulse is 83, temperature is 98.3, respirations 16, and O2 saturation is 94% on room air. HEENT: His head is atraumatic and normocephalic. Sclerae are nonicteric. Oral mucosa is moist. NECK: Supple, obese. LUNGS: Breath sounds diminished at both bases. HEART: S1 and S2 normal. No S3. No S4. ABDOMEN: Soft, obese, nondistended. EXTREMITIES: No clubbing, cyanosis, or edema. He has a diffuse bruising in his upper extremities. LABORATORY DATA: Glycemia is ranging from 162 to 219. His last creatinine was 2.3 yesterday. IMPRESSION: 1. Generalized weakness, multifactorial. 2. Escherichia coli urinary tract infection. 3. Acute on chronic kidney injury. 4. Liver cirrhosis with portal hypertension and moderate amount of ascites, status post paracentesis. 5. Hepatocellular carcinoma with metastasis. 6. Moderate to severe central canal stenosis. 7. Acute on chronic diastolic exacerbation, improving. 8. Hypotension. 9. Staph bacteremia contamination. 10. Moderate protein calorie malnutrition. 11. Diabetes mellitus type 2. 12. Pancytopenia. PLAN: We are going to continue his PT. Start him on Megace 800 mg once a day for his anorexia and move him to skilled unit for PT as soon as it is arranged and approved by the insurance. Job ID: [id number]
[2018-12-17 10:51] LABS: Hemoglobin 11.1 g/dL (14.0-18.0)
[2018-12-17 11:10] LABS: Anion Gap 13 mmol/L (10-20); BUN (Urea Nitrogen) 42 mg/dL (8.4-25.7); Calc. Creatinine Clearance 31 mL/min (70-130); Calcium 8.9 mg/dL (7.8-10.44); Carbon Dioxide 18 mmol/L (23-31); Chloride 108 mmol/L (98-107); Estimated GFR-MDRD 23; Glucose 180 mg/dL (83-110); Potassium 3.6 mmol/L (3.5-5.1); Sodium 135 mmol/L (136-145)
--- NOTE | 2018-12-17 12:15 | PRG ---
DATE OF SERVICE: 12/17/2018 SUBJECTIVE: An 88-year-old gentleman being seen for acute kidney injury. The patient denies any nausea, vomiting, or chest pain. OBJECTIVE: GENERAL: The patient is awake and alert. VITAL SIGNS: Afebrile, pulse 93, breathing 16, and blood pressure 93/59. GENERAL APPEARANCE AND MENTAL STATUS: Fair. HEAD/NECK: Normocephalic. Atraumatic. EYES: EOMI. No deformity. EARS: Clear. No ulcers. NOSE: Intact. No lesions. MOUTH: Clear. No discharge. THROAT: Clear. No exudate. LUNGS: Clear. No crackles. CARDIAC: S1, S2. No rub. ABDOMEN: Benign. Bowel sounds positive. GENITALIA/RECTUM: [place] absent. BACK/EXTREMITIES: Edema 0+. NEUROLOGICAL: Alert and motor intact. SKIN: LYMPHATICS: LABORATORY DATA: Reviewed. ASSESSMENT AND PLAN: 1. Chronic kidney disease, stage 4 with acute kidney injury. Recheck labs. 2. Hypertension, stable. 3. Anemia, stable. Medication based on GFR appropriate. Job ID: [id number]
[2018-12-17 13:59] VITALS: BMI 34.2
--- NOTE | 2018-12-17 14:08 | PQF ---
CLINICAL DOCUMENTATION IMPROVEMENT CLARIFICATION FORM: ICD-10 Updated PLEASE DO AN ADDENDUM TO THE PROGRESS NOTE WITH ANY DOCUMENTATION UPDATES OR ADDITIONS AND CARRY THROUGH TO DC SUMMARY. THANK YOU. DATE: 12/17/18 ATTN: DR. ENGLISH Please exercise your independent, professional judgment in responding to the clarification form. Clinical indicators are provided on the bottom of this form for your review Please check appropriate box(s): [ ] I (concur) with the Wound Care findings as stated below. [x ] Pressure Ulcer: (Stage I: Erythema; Stage II: Partial thickness; Stage III : Full thickness; Stage IV: Necrosis to muscle/bone) [ ] Location: POA: [ ] Yes [ ] No[ ] Unable to determine Stage (I to IV): (Left Right Bilateral N/A ) [ ] Location: POA: [ ] Yes [ ] No[ ] Unable to determine Stage (I to IV): (Left Right Bilateral N/A ) [ ] Location: POA: [ ] Yes [ ] No[ ] Unable to determine Stage (I to IV): (Left Right Bilateral N/A ) [ ] Gangrene present [ ] Yes [ ] ischemic gangrene [ ] gas gangrene [ ] No [ ] No pressure ulcer diagnosis [ ] Deep tissue injury [ ] Other diagnosis [ ] Unable to determine In addition, please specify: Present on Admission (POA): [ ] Yes [ ] No [ ] Unable to determine For continuity of documentation, please document condition throughout progress notes and discharge summary. Thank You. CLINICAL INDICATORS - SIGNS / SYMPTOMS / LABS NURSING ASSESSMENT 12/17: "STAGE II PRESSURE ULCER" RISKS: ADVANCED AGE LIVER CANCER WITH METASTASIS (ER NOTE 12/09) "VERY LIMITED MOBILITY" (PER NURSING ASSESSMENT 12/17) TREATMENT: IV VANCOMYCIN (ER) IV ROCEPHIN (ER-PRESENT) ASSISTANCE WITH MOBILITY AND TOILETING PER NURSING ASSESSMENT 12/17 NUTRITIONAL SUPPLEMENTS (ORDERED 12/10) [employer]ist [employer] Winform Viewer (This form is maintained as a part of the permanent medical record) 2014 [employer]. All Rights Reserved LUKE [email or web address] Office: [phone] [facility] HEALTHMayra
[2018-12-17] MEDS: cefTRIAXone\\ROCEPHIN 1 GM in Sodium Chloride 0.9% 100 ML IVPB SCH (14:19)
[2018-12-17] MEDS: Sodium Chloride 0.9% 1,000 ML IV SCH (14:19)
[2018-12-17] MEDS: Insulin Regular 300 UNITS/3 ML VIAL SC PRN (16:36)
[2018-12-17] MEDS: Tamsulosin HCl 0.4 MG CAP PO SCH (21:04)
[2018-12-18] MEDS: Sodium Chloride 0.9% 1,000 ML IV SCH (01:34)
[2018-12-18 07:17] LABS: Anion Gap 11 mmol/L (10-20); BUN (Urea Nitrogen) 44 mg/dL (8.4-25.7); Calc. Creatinine Clearance 32 mL/min (70-130); Calcium 8.5 mg/dL (7.8-10.44); Carbon Dioxide 19 mmol/L (23-31); Chloride 110 mmol/L (98-107); Estimated GFR-MDRD 24; Glucose 130 mg/dL (83-110); Potassium 3.5 mmol/L (3.5-5.1); Sodium 136 mmol/L (136-145)
[2018-12-18] MEDS: Megestrol Acetate 800 MG/20 ML UDCUP PO SCH (08:12)
[2018-12-18] MEDS: Folic Acid 1 MG TAB PO SCH (08:12)
[2018-12-18] MEDS: Saccharomyces boulardii 250 MG CAP PO SCH (08:13)
--- NOTE | 2018-12-18 09:38 | PRG ---
DATE OF SERVICE: 12/18/2018 SUBJECTIVE: The patient is seen and examined at the bedside. He does not have much appetite. He sleeps on and off all day according to his , who is present in the room during my visit. He ate few bites of his breakfast this morning, but that is all. OBJECTIVE: VITAL SIGNS: Blood pressure is 83/54, pulse is 91, respiratory rate is 20, temperature is 97.9, and O2 saturation is 95% on room air. HEENT: His sclerae are nonicteric. Pupils are responding to light properly. Oral mucosa is moist. NECK: Supple, obese. LUNGS: Breath sounds are diminished at both bases. HEART: S1 and S2 normal. ABDOMEN: Soft. Mildly distended. There is probably some fluid in it. Bowel sounds are present, sluggish. EXTREMITIES: 1 to 2+ peripheral edema similar bilateral on lower extremities. NEUROLOGICAL: He tries to follow my commands. He moves his all 4 extremities. LABORATORY DATA: Labs showed sodium of 136, potassium 3.5, chloride 110, CO2 of 19, BUN 44, creatinine 2.53, glycemia is ranging from 121 to 174, and calcium is 8.5. IMPRESSION: 1. Generalized weakness, multifactorial. 2. Hypotension, which is chronic. 3. Acute on chronic kidney injury. 4. Liver cirrhosis with portal hypertension, status post paracentesis. 5. 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 6. Acute on chronic diastolic exacerbation, improved. 7. Staphylococcus bacteremia, felt to be contamination. 8. Moderate protein malnutrition. 9. Diabetes mellitus. 10. 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 PLAN: Plan is to continue his Megace. His intake is very poor. We will continue his PT. We will continue his current regimen. If he is approved today to skilled for PT, we will discontinue his antibiotic. Job ID: [id number]
[2018-12-18 11:14] VITALS: BP 90/59; TEMP 97.4
[2018-12-18] MEDS ORDERED: Nystatin Powder 15 GM BOT TOP PRN (11:38)
--- NOTE | 2018-12-18 13:44 | PRG ---
DATE OF SERVICE: 12/18/2018 SUBJECTIVE: An 88-year-old gentleman, being seen for acute kidney injury. The patient denied nausea, vomiting, or chest pain. OBJECTIVE: CONSTITUTIONAL: The patient is awake and alert. VITAL SIGNS: Afebrile, pulse 80, breathing 16, blood pressure 90/59. GENERAL APPEARANCE AND MENTAL STATUS: Fair. HEAD/NECK: Normocephalic. Atraumatic. EYES: EOMI. No deformity. EARS: Clear. No ulcers. NOSE: Intact. No lesions. MOUTH: Clear. No discharge. THROAT: Clear. No exudate. LUNGS: Clear. No crackles. CARDIAC: S1, S2. No rub. ABDOMEN: Benign. Bowel sounds positive. GENITALIA/RECTUM: [place] absent. BACK/EXTREMITIES: Edema 0+. NEUROLOGICAL: Alert and motor intact. SKIN: LYMPHATICS: LABORATORY DATA: Hemoglobin 11.1. Creatinine 2.5. ASSESSMENT AND PLAN: 1. Acute kidney injury with chronic kidney disease, stable. 2. Hypertension, stable. 3. Anemia, stable. 4. Hypotension. Would recommend hydration. 5. Overall, prognosis is poor. Job ID: [id number]
[2018-12-18] MEDS: cefTRIAXone\\ROCEPHIN 1 GM in Sodium Chloride 0.9% 100 ML IVPB SCH (14:24)
--- NOTE | 2018-12-19 06:00 | DIS ---
DATE OF ADMISSION: 12/09/2018 DATE OF DISCHARGE: 12/18/2018 DIAGNOSES AT TIME OF ADMISSION: 1. Generalized weakness, multifactorial. 2. Urinary tract infection. 3. Acute kidney injury on chronic kidney disease stage 2, probably secondary to intravascular volume depletion. 4. Cirrhosis with portal hypertension and moderate amount of ascites. 5. Hepatocellular carcinoma with metastasis. 6. Yxlhenol-jb-boapue central canal stenosis in the L3 vertebral body along with a lytic lesion in the left iliac bone. 7. Congestive heart failure exacerbation. 8. Metabolic acidosis. 9. Abnormal liver function tests. 10. Moderate protein calorie malnutrition. 11. Microcytic anemia. 12. Pancytopenia. 13. Diverticulosis. 14. Hypertension. 15. Diabetes mellitus type 2. 16. Gastroesophageal reflux disease. 17. Hyperlipidemia. FINAL DIAGNOSES: 1. Generalized weakness, multifactorial. 2. Hypotension, chronic. 3. Rvudo-wt-ypxfqfi kidney injury. 4. Liver cirrhosis with portal hypertension, status post paracentesis. 5. 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 6. Diastolic heart failure exacerbation. 7. Moderate protein malnutrition. 8. Diabetes mellitus type 2. 9. Pancytopenia from liver cirrhosis. 10. Diverticulosis. 11. Gastroesophageal reflux disease. 12. Hyperlipidemia. 13. Nkrccdcn-dt-hrvdtd central canal stenosis in the L3 vertebral body along with lytic lesions in the left iliac bone. 14. Cirrhosis with portal hypertension and moderate amount of ascites. 15. Urinary tract infection. CONSULTANTS: 1. Dr. Santos, Oncology Service. 2. Dr. Westfall, Gastrointestinal Service. 3. Dr. Mcmillan, Nephrology Service. 4. Dr. Mohamud, Infectious Disease Service. 5. Dr. Prather, Nephrology Service. HOSPITAL COURSE: The patient is an 88-year-old male, who was admitted to the hospital with complaints of generalized weakness. His noticed gradual decline over several months prior to this hospitalization. He was recently at [facility] as well as [facility] and over the last 2 months, he was living at home. He has fallen approximately 10 times before the hospitalization and the last fall was 1 day prior to this hospitalization. There was no any significant injuries during this fall. Apparently, he lost his appetite. There was no fever, dysuria, hematuria, or urgency reported. There was some nausea. Also, the family noticed worsening of his lower extremity swelling along with increasing abdominal distention. Apparently at Dr. Edmond's office, his creatinine was 2.48 prior to this hospitalization. This was 1 week prior to this hospitalization. At the time of emergency room evaluation, he had chest x-ray done, which showed left pleural effusion with adjacent atelectasis and/or pneumonia with pulmonary vascular congestion. Also bilateral lower extremity Doppler was negative for DVTs and EKG showed sinus bradycardia with PVCs. White count at the time of admission was 4.5, hemoglobin 11.5, hematocrit 34.1, platelet count was 60, and MCV was 108. INR 1.5, PT of 17.9, and APTT 37.1. Sodium 138, potassium 4.1, chloride 106, CO2 of 20, BUN 46, creatinine 2.84. Creatinine was 1.09 and GFR was estimated at 64. Urinalysis showed greater than 50 wbcs with 4+ bacteria and a CT stone protocol showed cirrhosis with portal hypertension and ascites, also showed lytic lesion of 4.3 cm at L3 vertebral body causing sxwfthsh-qo-dsauqr central canal stenosis. Also, there was a destructive lytic lesion involving the left iliac bone near the acetabulum measuring 5.6 cm in size. There was moderate ascites with enlarging mesenteric mass. There was cholelithiasis as well. The patient got admitted to telemetry unit. Oncology, Nephrology and Gastroenterology services were consulted along with Palliative Care Team. Gentle hydration for LUIS A and Neurosurgery was consulted for the lytic lesion along with lokpiimr-fd-rfudgr central canal stenosis. PT was consulted. 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 The patient was continued on ceftriaxone and vancomycin. He had paracentesis done and pathology report came back positive for rare atypical cells in his ascitic fluid. One out of 2 blood cultures came back positive for coagulase negative Staphylococcus, which was felt to be contamination, but his urine culture grew more than 100,000 colonies of E. coli with a broad susceptibility profile. With those findings, his antibiotic regimen was changed to Rocephin. Vancomycin was stopped and even though his paracentesis was successful and radiologist was able to drain 6 L of yellow fluid from his abdominal cavity, this did not change much in his clinical presentation. His anorexia was still profound and he was started on Megace. During this hospitalization, physical therapy sessions were given as a treatment. [facility]. Today his blood pressure is 90/59, which is quite chronically low and normal for him. His temperature is 97.4, pulse is 88, respirations 18, O2 saturation 96% on room air. He was seen and examined before he was discharged. He will stay on regular diet given he is a diabetic, but he does not eat much at all. He will continue his PT. MEDICATIONS: At the time of discharge: 1. Sertraline 25 mg once daily. 2. Flomax 0.4 mg once daily. 3. Florastor 250 mg once daily. 4. Pantoprazole 40 mg daily. 5. Megace 800 mg daily. 6. Lactulose 10 mg daily. 7. Folic acid 1 mg twice daily. 8. Calcium carbonate 1000 mg q.4 hours p.r.n. as needed. 9. Tylenol 650 mg q.4 hours p.r.n. as needed. He is discharged to [facility] and discharge time is more than 30 minutes. Job ID: [id number]
== END 2018-12-18 16:40 | DRG 682 ==
LOC: ERS 15:11 → 2NO 16:48 → T4-B 12-10 19:07
PROVIDERS: ADMIT Internal Medicine; ATTEND Internal Medicine
PROC: 0W9G3ZZ Drainage of Peritoneal Cavity, Percutaneous Approach (ICD-10-PCS; principal; 2018-12-09)
PROC: BF4CZZZ Ultrasonography of Hepatobiliary System, All (ICD-10-PCS; 2018-12-09)
DX: N17.0 Acute kidney failure with tubular necrosis (principal); I50.31 Acute diastolic (congestive) heart failure; D61.811 Other drug-induced pancytopenia; I13.0 Hypertensive heart and chronic kidney disease with heart failure and stage 1 through stage 4 chronic kidney disease, or unspecified chronic kidney disease; K76.6 Portal hypertension; C48.1 Malignant neoplasm of specified parts of peritoneum; C79.51 Secondary malignant neoplasm of bone; E44.0 Moderate protein-calorie malnutrition; C22.0 Liver cell carcinoma; E87.2 Acidosis; R18.8 Other ascites; N39.0 Urinary tract infection, site not specified; Z51.5 Encounter for palliative care; D63.1 Anemia in chronic kidney disease; I95.9 Hypotension, unspecified; K74.60 Unspecified cirrhosis of liver; K57.90 Diverticulosis of intestine, part unspecified, without perforation or abscess without bleeding; K21.9 Gastro-esophageal reflux disease without esophagitis; E78.00 Pure hypercholesterolemia, unspecified; E78.5 Hyperlipidemia, unspecified; M48.061 Spinal stenosis, lumbar region without neurogenic claudication; E86.9 Volume depletion, unspecified; I48.0 Paroxysmal atrial fibrillation; E11.22 Type 2 diabetes mellitus with diabetic chronic kidney disease; Z96.659 Presence of unspecified artificial knee joint; N18.2 Chronic kidney disease, stage 2 (mild); L89.891 Pressure ulcer of other site, stage 1; B96.20 Unspecified Escherichia coli [E. coli] as the cause of diseases classified elsewhere; N40.0 Benign prostatic hyperplasia without lower urinary tract symptoms; E87.6 Hypokalemia; M19.90 Unspecified osteoarthritis, unspecified site; Z79.01 Long term (current) use of anticoagulants; Z79.4 Long term (current) use of insulin
CPT/HCPCS: 36415; 36416; 49083; 51701; 71045; 74018; 74176; 80048; 80053; 80069; 80202; 81003; 81015; 82042; 82105; 82140; 82533; 82550; 82553; 82607; 82746; 83605; 83690; 83735; 83880; 84100; 84157; 84439; 84443; 84484; 85007; 85014; 85018; 85025; 85027; 85049; 85060; 85610; 85730; 87040; 87070; 87077; 87086; 87149; 87186; 87205; 87324; 87449; 88112; 88305; 89051; 93005; 93306; 93970; 94760; 96361; 96365; 96366; J0696; J1815; J2405; J2543; J3370; J3490; J7050; P9047